=== PATIENT | female | born 1955 | race Hispanic/Latino ===

== ENCOUNTER → 2017-09-02 | Outpatient (CLI) | payer BC ==
[~2017-09-02] MED LIST: ENALAPRIL MALEAT5 MG PO; ESTRADIOL1 MG PO; LOSARTAN POTASS25 MG PO; Z.0.GLIPIZIDE10 MG PO; Z.0.METFORMIN HCL850 PO; Z.0.PRAVASTATIN SOD4 PO; Z.0.PREMARIN0.45 MG PO
--- NOTE | 2017-09-02 11:10 | Diagnostic Imaging Report ---
EXAM: DXA BONE DENSITY INDICATIONS: Postmenopausal screening COMPARISON: None. FINDINGS: Left femoral neck bone mineral density (BMD) (g/cm2):0.815 Femur T-score (standard deviation relative to young adult mean BMD): -0.5 Femur Z-score (standard deviation relative to age-matched control group):0.8 Lumbar bone mineral density (BMD) (g/cm2):0.915 Lumbar T-score (standard deviation relative to young adult mean BMD): -1.2 Lumbar Z-score (standard deviation relative to age-matched control group):0.2 CONCLUSION: WHO bone mineral classification: Low bone mass (osteopenia). RECOMMENDATIONS: Normal \T\ Osteopenia:Calcium supplementation, daily multiple vitamins, and adequate exercise as preventive measures against osteoporosis. Osteoporosis \T\ Severe Osteoporosis: In addition to the above, pharmacologic therapy. Dictated by: Abran Arreola M.D. on 09/02/2017 at 11:09 Electronically approved by: Abran Arreola M.D. on 09/02/2017 at 11:09
== END ==
LOC: MAMMO 09:38
PROVIDERS: ATTEND Family Medicine
DX: Z12.31 Encounter for screening mammogram for malignant neoplasm of breast (principal); Z78.0 Asymptomatic menopausal state
CPT/HCPCS: 77080

== ENCOUNTER → 2018-03-24 | Outpatient (CLI) | payer BC ==
--- NOTE | 2018-03-24 13:03 | Diagnostic Imaging Report ---
EXAMINATION: Thyroid ultrasound. CLINICAL HISTORY: Thyroid enlargement COMPARISON: None. . DISCUSSION: Transverse and longitudinal images of the thyroid were obtained utilizing grayscale and color Doppler modalities. The right thyroid lobe measures 3.8 x 1.2 x 1.5 cm and shows heterogeneous echogenicity. Interpolar 1 x 0.6 x 0.9 cm solid (2), hypoechoic (2), wider than tall (0), sharply marginated nodule (0) with no internal echogenic foci (0). The left thyroid lobe measures 3.9 x 1.4 x 1.5 cm and shows heterogeneous echogenicity. No nodules are seen. The thyroid isthmus measures 0.2 cm and shows normal echogenicity. No nodules are seen. There is no gross cervical adenopathy. IMPRESSION: 1 cm right thyroid nodule, TI RADS 4, recommend follow-up thyroid ultrasound in one year to assess for stability. Signed by: Dr. Juan Crowe M.D. on 03/24/2018 1:00 PM
== END ==
LOC: US 11:50
PROVIDERS: ATTEND Family Medicine
DX: E04.9 Nontoxic goiter, unspecified (principal)
CPT/HCPCS: 76536

== ENCOUNTER → 2018-10-12 | Outpatient (CLI) | payer BC ==
--- NOTE | 2018-10-12 12:40 | Diagnostic Imaging Report ---
Lumbar Spine Radiographs: 5 views including obliques HISTORY: Lumbosacral pain COMPARISON: None available. DISCUSSION: The osseous structures are partially obscured by stool and bowel gas. Five non-rib bearing lumbar vertebral bodies. Minimal right convex curvature. No displaced fracture or compression deformity is identified. Disc Spaces: Multilevel degenerative changes, most notably moderate at T12-L1 and L1-2. Facets: Multilevel hypertrophic degenerative changes, most notably moderate at L3-4 and L4-5, severe at L5-S1. IMPRESSION: 1. No acute radiographic abnormality. 2. Multilevel degenerative changes, most notably hypertrophic facet arthrosis at L5-S1, which results in mild bilateral neuroforaminal osseous encroachment. Signed by: Dr. Catarino Zimmer D.O., M.M.M. on 10/12/2018 12:37 PM
== END ==
LOC: RAD 10:11
PROVIDERS: ATTEND Family Medicine
DX: M54.5 Low back pain (principal)
CPT/HCPCS: 72110

== ENCOUNTER → 2018-10-31 | Outpatient (CLI) | payer BC | LOC: MAMMO 08:47 | PROVIDERS: ATTEND Family Medicine | DX: Z12.31 Encounter for screening mammogram for malignant neoplasm of breast (principal) | CPT/HCPCS: 77067 ==

== ENCOUNTER → 2018-11-13 | Outpatient (CLI) | payer BC ==
--- NOTE | 2018-11-13 18:11 | Diagnostic Imaging Report ---
Exam: Left hip series History: Fall Comparison: None available Findings: No obvious displaced hip fracture. Faint sclerotic line in the subcapital region could represent minimal impaction. CT scan of the hip is recommended if clinical suspicion for a fracture is high. Impression: Faint subcapital sclerotic line could represent a nondisplaced fracture. Signed by: Dr. Sai Lebron DO on 11/13/2018 6:08 PM
== END ==
LOC: RAD 15:08
PROVIDERS: ATTEND Family Medicine
DX: M25.552 Pain in left hip (principal); W18.30XA Fall on same level, unspecified, initial encounter

== ENCOUNTER → 2018-11-17 | Outpatient (CLI) | payer BC ==
--- NOTE | 2018-11-19 08:06 | Diagnostic Imaging Report ---
TECHNIQUE: Magnetic resonance imaging of the LEFT HIP was performed WITHOUT injected contrast. HISTORY: OCCULT FRACTURE LEFT HIP, fall COMPARISON: Left hip radiographs November 13, 2018 FINDINGS: Bone: A 6 mm hypointensity within the left ischium, compatible with a small bone island. Otherwise, the bone marrow signal is diffusely heterogeneous, compatible with red marrow conversion, no specific evidence of a focal bone marrow replacing abnormality. No osteonecrosis or acute fracture. Femoroacetabular Joint: Acetabular labrum: Complex tearing and attenuation of the superior and anterosuperior labrum along with a focal high-grade, nondisplaced detachment of the anterior labrum (series 7 image 11). Articular Cartilage: Diffuse intermediate to high-grade erosion. Incidentally, there is symmetric bilateral axial narrowing. Muscle and tendons: Gluteus minimus tendinopathy with low-grade partial tearing of the distal fibers near the greater trochanteric insertion. Mild adjacent edema. Soft tissues: Otherwise, unremarkable. IMPRESSION: 1. Bilateral moderate symmetric hip arthropathy, consider underlying inflammatory arthropathy. 2. Superimposed degenerative changes of the left hip, including degenerative tearing of the labrum. 3. 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 4. No acute fracture. Signed by: Pastor Dennis.O., M.M.M. on 11/19/2018 8:02 AM
== END ==
LOC: MRI 16:56
PROVIDERS: ATTEND Specialist
DX: M25.552 Pain in left hip (principal); W19.XXXA Unspecified fall, initial encounter

== ENCOUNTER 2019-01-18 18:27 | Emergency (ER) | payer BC ==
[~2019-01-18] VITALS: Ht 152.4 cm; Wt 80.7 kg
--- OUTSIDE RECORDS SUMMARY | 2019-01-18 18:33 | XMS REPORT ---
Author Author Rylee Garcia [facility] eClinicalWorks Address Unknown Phone Unavailable Care Team Providers Care Heavy Equipment Operator/Paver Name Role Phone Rylee Garcia Unavailable Allergies, Adverse Reactions, Alerts Substance Reaction Event Type N.K.D.A. 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 Problem Polyarthritis M13.0 Active Medications Medication Code System Code Instructions Start Date End Date Status Dosage Ibuprofen [facility] [address]-22 800 MG Orally Three times a day Feb 24, 2017 Active 1 tablet with food or milk as needed Famotidine [facility] [address]-77 20 MG Orally Three times a day Feb 24, 2017 Active 1 tablet Diclofenac Sodium [facility] [address]-33 1 % Transdermal Active as directed Duexis [facility] 41578451672 800-26.6 MG PRN Feb 24, 2017 Inactive 1 tablet Losartan Potassium [facility] [address]-94 25 MG Orally Once a day Active 1 tablet GlipiZIDE [facility] [address]-26 10 MG Orally Once a day Active 1 tablet Plaquenil [facility] [address]-61 200 MG Orally Twice a day May 25, 2017 Active 1 tablet with food or milk Lyrica [facility] [address]-47 75 MG Orally Twice a day Feb 24, 2017 Active 1 capsule MetFORMIN HCl ER [facility] [address]-73 750 MG Orally Once a day Active 1 tablet with evening meal Pravastatin Sodium [facility] [address]-29 80 MG Orally Once a day Active 1 tablet Januvia [facility] [address]-56 100 MG Orally Once a day Active 1 tablet Vital Signs Date/Time: Feb 24, 2017 BMI 34.64 Index Weight 177.4 lbs Height 60 in Temperature 98.1 F Cardiac Monitoring Heart Rate 80 /min Blood Pressure Diastolic 60 mm Hg Blood Pressure Systolic 100 mm Hg Results No Known Results Summary Purpose eClinicalWorks Submission
--- OUTSIDE RECORDS SUMMARY | 2019-01-18 18:33 | XMS REPORT ---
Author Author Rylee Garcia Organization eClinicalWorks Address Unknown Phone Unavailable Care Team Providers Care Publication Editor Name Role Phone Rylee Garcia Unavailable Allergies, Adverse Reactions, Alerts Substance Reaction Event Type N.K.D.A. 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 [address]-78 10 MG Orally Once a day Active 1 tablet [address] [facility] [address]-57 800-26.6 MG Orally Three times a day December 08, 2016 January 07, 2017 Active 1 tablet Hydroxychloroquine Sulfate [facility] [address]-93 200 MG Orally bid October 07, 2016 February 04, 2017 Active 1 tablet with food or milk Butalbital-Acetaminophen [facility] [address]-65 50-325 MG Orally PRN Active 1 tablet as needed Losartan Potassium [facility] [address]-14 25 MG Orally Once a day Active 1 tablet [address] [facility] [address]-70 100 MG Orally Once a day Active 1 tablet MetFORMIN HCl ER [facility] [address]-96 750 MG Orally Once a day Active 1 tablet with evening meal Pravastatin Sodium [facility] [address]-26 80 MG Orally Once a day Active 1 tablet Diclofenac Sodium [facility] [address]-26 1 % Transdermal Active as directed Vimovo [facility] [address]-50 500-20 MG Orally Twice a day December 08, 2016 Inactive 1 tablet before meals Vital Signs Date/Time: December 08, 2016 BMI 35.01 Index Weight 179.3 lbs Height 60 in Temperature 98.0 F Cardiac Monitoring Heart Rate 80 /min Blood Pressure Diastolic 70 mm Hg Blood Pressure Systolic 112 mm Hg Results No Known Results Summary Purpose eClinicalWorks Submission
--- OUTSIDE RECORDS SUMMARY | 2019-01-18 18:33 | XMS REPORT ---
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
--- OUTSIDE RECORDS SUMMARY | 2019-01-18 18:33 | XMS REPORT ---
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
--- OUTSIDE RECORDS SUMMARY | 2019-01-18 18:33 | XMS REPORT ---
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
--- OUTSIDE RECORDS SUMMARY | 2019-01-18 18:33 | XMS REPORT ---
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
--- OUTSIDE RECORDS SUMMARY | 2019-01-18 18:33 | XMS REPORT ---
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
--- OUTSIDE RECORDS SUMMARY | 2019-01-18 18:33 | XMS REPORT ---
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
--- OUTSIDE RECORDS SUMMARY | 2019-01-18 18:33 | XMS REPORT ---
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
--- OUTSIDE RECORDS SUMMARY | 2019-01-18 18:33 | XMS REPORT ---
Author Author Leo Hsieh Organization eClinicalWorks Address Unknown Phone Unavailable Care Team Providers Care Labor Conciliator Name Role Phone Leo Hsieh CP Unavailable Allergies, Adverse Reactions, Alerts Substance Reaction Event Type N.K.D.A. 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 Problem Fibromyalgia M79.7 Active Problem Polyarthritis M13.0 Active Medications Medication Code System Code Instructions Start Date End Date Status Dosage Januvia ND 73989983088 100 MG Orally Once a day Active 1 tablet GlipiZIDE ND 43858996907 10 MG Orally Once a day Active 1 tablet Tylenol/Codeine #3 [facility] 11307198883 300-30 MG Orally bid Active 1 tablet as needed MetFORMIN HCl ER ND 71337733388 750 MG Orally Once a day Active 1 tablet with evening meal Omeprazole ND 55832439421 40 MG Orally Once a day Active 1 capsule Lyrica ND 36301146004 50 MG Orally as needed Active 1 capsules Losartan Potassium ND 66261834233 25 MG Orally Once a day Active 1 tablet Leflunomide ND 52563479178 20 MG Orally Once a day Active tome monse - 1 tableta(s) por la boca monse vez al tyler. Pravastatin Sodium ND 20971556209 80 MG Orally Once a day Active 1 tablet Vital Signs Date/Time: Aug 24, 2018 BMI 35 Index Weight 177 lbs Height 60 in Temperature 98.4 F Cardiac Monitoring Heart Rate 96 /min Blood Pressure Diastolic 82 mm Hg Blood Pressure Systolic 110 mm Hg Results No Known Results Summary Purpose eClinicalWorks Submission
--- OUTSIDE RECORDS SUMMARY | 2019-01-18 18:33 | XMS REPORT | Continuity of Care Document ---
Author Author [employer] Organization [employer] Address Unknown Phone Unavailable Care Team Providers Care Industrial Green Systems Designer Name Role Phone [employer] Unavailable Unavailable Problems Problem Status Onset Date Classification Date Reported Comments Source Primary osteoarthritis involving multiple joints Active Problem 12/22/2018 Gregory Hsieh Polyarthritis Active Diagnosis 12/22/2018 Gregory Jori Fibromyalgia Active Problem 12/22/2018 Gregory Jori Myalgia Active Diagnosis 10/14/2018 Gregory Hsieh Encounter for drug therapy Active Problem 12/22/2018 Gregory Hsieh Osteopenia of spine Active Problem 12/22/2018 Gregory Hsieh Neck pain Active Problem 12/22/2018 Gregory Hsieh Sciatica of right side Active Problem 12/22/2018 Gregory Hsieh Medications Medication Details Route Status Patient Instructions Ordering Provider Order Date Source Acetaminophen-Codeine #3 1 tablet as needed Orally Active 300- 30 MG Orally q hs Hsieh 09/01/2017 Gregory Hsieh PredniSONE 1 tablet Orally Active 5 MG Orally q am with food Hsieh 09/01/2017 Gregory Hsieh Celecoxib 1 capsule with food Orally Active 200 MG Orally Twice a day Hsieh 07/21/2017 Gregory Hsieh Plaquenil 1 tablet with food or milk Orally Active 200 MG Orally Twice a day Sadie 07/21/2017 Gregory Hsieh Leflunomide 1 tablet Orally Active 10 MG Orally Once a day Hsieh 07/21/2017 Gregory Hsieh Plaquenil 1 tablet with food or milk Orally Active 200 MG Orally Twice a day Garcia 05/25/2017 Gregory Hsieh Famotidine 1 tablet Orally Active 20 MG Orally Three times a day Garcia 02/24/2017 Gregory Hsieh Plaquenil 1 tablet with food or milk Orally Active 200 MG Orally Twice a day Hsieh 02/24/2017 Gregory Hsieh Ibuprofen 1 tablet with food or milk as needed Orally Active 800 MG Orally Three times a day Garcia 02/24/2017 Gregory Hsieh Duexis 1 tablet NA Active 800-26.6 MG PRN Garcia 02/24/2017 Gregory Hsieh Lyrica 1 capsule Orally Active 75 MG Orally Twice a day Barnes 02/24/2017 Gregory Hsieh Duexis 1 tablet Orally Active 800-26.6 MG Orally Three times a day Garcia 12/08/2016 Gregory Hsieh Vimovo 1 tablet before meals Orally Active 500-20 MG Orally Twice a day Barnes 12/08/2016 Gregory Hsieh Hydroxychloroquine Sulfate 1 tablet with food or milk Orally Active 200 MG Orally bid Barnes 10/07/2016 Gregory Hsieh GlipiZIDE 1 tablet Orally Active 10 MG Orally Once a day [place] Gregory Hsieh Butalbital-Acetaminophen 1 tablet as needed Orally Active 50- 325 MG Orally PRN [place] Gregory Hsieh Losartan Potassium 1 tablet Orally Active 25 MG Orally Once a day [place] Gregory Hsieh Januvia 1 tablet Orally Active 100 MG Orally Once a day [place] Gregory Hsihe MetFORMIN HCl ER 1 tablet with evening meal Orally Active 750 MG Orally Once a day [place] Gregory Hsieh Pravastatin Sodium 1 tablet Orally Active 80 MG Orally Once a day [place] Gregory Hsieh Diclofenac Sodium as directed Transdermal Active 1 % Transdermal [place] Gregory Hsieh Losartan Potassium 1 tablet Orally Active 25 MG Orally Once a day [place] Gregory Careyer Pravastatin Sodium 1 tablet Orally Active 80 MG Orally Once a day [place] Gregory Hsieh GlipiZIDE 1 tablet Orally Active 10 MG Orally Once a day [place] Gregory Hsieh Januvia 1 tablet Orally Active 100 MG Orally Once a day [place] Gregory Careyer Leflunomide TOME MONSE (1) TABLETA(S) POR LA BOCA MONSE VEZ AL ERIN. NA Active 10 MG [place] Gregory Careyer Headache Relief 2 tablets as needed Orally Active 250-250-65 MG Orally every 6 hrs [place] Gregory Careyer MetFORMIN HCl ER 1 tablet with evening meal Orally Active 750 MG Orally Once a day [place] Gregory Careyer Januvia 1 tablet Orally Active 100 MG Orally Once a day [facility] Diclofenac Sodium as directed Transdermal Active 1 % Transdermal [place] Gregory Hsieh Lyrica 1 capsule Orally Active 75 MG Orally Twice a day [place] Gregory Hsieh Ibuprofen 1 tablet with food or milk as needed Orally Active 800 MG Orally Three times a day [place] Gregory Hsieh Famotidine 1 tablet Orally Active 20 MG Orally Three times a day [place] Gregory Hsieh Tylenol/Codeine #3 1 tablet as needed Orally Active 300-30 MG Orally bid [place] Gregory Hsieh Omeprazole 1 capsule Orally Active 40 MG Orally Once a day [place] Gregory Hsieh Lyrica 1 capsules Orally Active 50 MG Orally as needed [place] Gregory Hsieh Leflunomide tome monse -1 tableta(s) por la boca monse vez al erin. Orally Active 20 MG Orally Once a day [place] Gregory Hsieh Lansoprazole 1 capsule Orally Active 30 MG Orally Once a day [place] Gregory Hsieh Lyrica 2 capsules Orally Active 25 MG Orally Twice a day [place] Gregory Hsieh Allergies, Adverse Reactions, Alerts Substance Category Reaction Severity Reaction type Status Date Reported Comments Source N.K.D.A. Adverse Reaction Info Not Available Adverse Reaction Active 08/24/2018 Gregory Hsieh Immunizations No Data Provided for This Section Results No Data Provided for This Section Pathology Reports No Data Provided for This Section Diagnostic Reports No Data Provided for This Section Consultation Notes No Data Provided for This Section Discharge Summaries No Data Provided for This Section History and Physicals No Data Provided for This Section Vital Signs Vital Sign Value Date Comments Source Weight 177 08/24/2018 Gregory Hsieh Height 60 08/24/2018 Gregory Hsieh Temperature Oral (F) 98.4 F 08/24/2018 Gregory Hsieh Heart Rate 96 08/24/2018 Gregory Hsieh Diastolic (mm Hg) 82 08/24/2018 Gregory Hsieh Systolic (mm Hg) 110 08/24/2018 Gregory Hsieh Weight 178.1 05/23/2018 Gregory Hsieh Height 60 05/23/2018 Gregory Hsieh Temperature Oral (F) 98.5 F 05/23/2018 Gregory Hsieh Heart Rate 80 05/23/2018 Gregory Hsieh Diastolic (mm Hg) 72 05/23/2018 Gregory Hsieh Systolic (mm Hg) 124 05/23/2018 Gregory Hsieh Weight 175.2 11/22/2017 Gregory Hsieh Height 60 11/22/2017 Gregory Hsieh Temperature Oral (F) 98.1 F 11/22/2017 Gregory Hsieh Heart Rate 80 11/22/2017 Gregory Hsieh Diastolic (mm Hg) 72 11/22/2017 Gregory Hsieh Systolic (mm Hg) 110 11/22/2017 Gregory Hsieh Weight 179 09/01/2017 Gregory Hsieh Height 60 09/01/2017 Gregory Hsieh Temperature Oral (F) 98.8 F 09/01/2017 Gregory Hsieh Heart Rate 99 09/01/2017 Gregory Hsieh Diastolic (mm Hg) 70 09/01/2017 Gregory Hsieh Systolic (mm Hg) 110 09/01/2017 Gregory Hsieh Weight 180 07/21/2017 Gregory Hsieh Height 60 07/21/2017 Gregory Hsieh Temperature Oral (F) 98.4 F 07/21/2017 Gregory Hsieh Heart Rate 80 07/21/2017 Gregoyr Hsieh Diastolic (mm Hg) 70 07/21/2017 Gregory Hsieh Systolic (mm Hg) 110 07/21/2017 Gregory Hsieh Weight 177.4 02/24/2017 Gregory Hsieh Height 60 02/24/2017 Gregory Hsieh Temperature Oral (F) 98.1 F 02/24/2017 Gregory Hsieh Heart Rate 80 02/24/2017 Gregory Hsieh Diastolic (mm Hg) 60 02/24/2017 Gregory Hsieh Systolic (mm Hg) 100 02/24/2017 Gregory Hsieh Weight 179.3 12/08/2016 Gregory Hsieh Height 60 12/08/2016 Gregory Hsieh Temperature Oral (F) 98.0 F 12/08/2016 Gregory Hsieh Heart Rate 80 12/08/2016 Gregory Hsieh Diastolic (mm Hg) 70 12/08/2016 Gregory Hsieh Systolic (mm Hg) 112 12/08/2016 Gregory Hsieh Encounters No Data Provided for This Section Procedures No Data Provided for This Section Assessment and Plan No Data Provided for This Section Plan of Care No Data Provided for This Section Social History No Data Provided for This Section Family History No Data Provided for This Section Advance Directives No Data Provided for This Section Functional Status No Data Provided for This Section
--- OUTSIDE RECORDS SUMMARY | 2019-01-18 18:34 | XMS REPORT ---
Author Author Leo Hsieh [facility] eClinicalWorks Address Unknown Phone Unavailable Care Team Providers Care Marine Cargo Specialist Name Role Phone Leo Hsieh Unavailable Allergies, Adverse Reactions, Alerts Substance Reaction Event Type N.K.D.A. Info Not Available Non Drug Allergy Problems Problem Type Condition Code Onset Dates Condition Status Assessment Neck pain M54.2 Active Assessment Polyarthritis M13.0 Active Assessment Osteopenia of spine M85.88 Active Assessment Encounter for drug therapy Z79.899 Active Assessment Fibromyalgia M79.7 Active Assessment Primary osteoarthritis involving multiple joints M15.0 Active Problem Osteopenia of spine M85.88 Active Problem Encounter for drug therapy Z79.899 Active Problem Neck pain M54.2 Active Problem Primary osteoarthritis involving multiple joints M15.0 Active Problem Fibromyalgia M79.7 Active Problem Polyarthritis M13.0 Active Medications Medication Code System Code Instructions Start Date End Date Status Dosage Januvia [facility] 85878552365 100 MG Orally Once a day Active 1 tablet Omeprazole ND 67358082623 40 MG Orally Once a day Active 1 capsule GlipiZIDE ND 24334934996 10 MG Orally Once a day Active 1 tablet Losartan Potassium ND 44566568163 25 MG Orally Once a day Active 1 tablet Lansoprazole ND 71211679839 30 MG Orally Once a day Active 1 capsule Tylenol/Codeine #3 [facility] 77337415712 300-30 MG Orally every 6 hrs Active 1 tablet as needed MetFORMIN HCl ER ND 28842081554 750 MG Orally Once a day Active 1 tablet with evening meal Leflunomide ND 87517736229 20 MG Orally Once a day Active tome monse - 1 tableta(s) por la boca monse vez al tyler. Lyrica ND 09860525476 25 MG Orally Twice a day Active 2 capsules Pravastatin Sodium ND 22609113687 80 MG Orally Once a day Active 1 tablet Vital Signs Date/Time: May 23, 2018 BMI 34.78 Index Weight 178.1 lbs Height 60 in Temperature 98.5 F Cardiac Monitoring Heart Rate 80 /min Blood Pressure Diastolic 72 mm Hg Blood Pressure Systolic 124 mm Hg Results No Known Results Summary Purpose eClinicalWorks Submission
--- OUTSIDE RECORDS SUMMARY | 2019-01-18 18:34 | XMS REPORT ---
Author Author Joan Noel [facility] eClinicalWorks Address Unknown Phone Unavailable Care Team Providers Care Emergency Nurse Name Role Phone Joan Noel Unavailable Allergies, Adverse Reactions, Alerts Substance Reaction Event Type N.K.D.A. Info Not Available Non Drug Allergy Problems Problem Type Condition Code Onset Dates Condition Status Problem Polyarthritis M13.0 Active Problem Primary osteoarthritis involving multiple joints M15.0 Active Problem Fibromyalgia M79.7 Active Assessment Polyarthritis M13.0 Active Assessment Fibromyalgia M79.7 Active Medications Medication Code System Code Instructions Start Date End Date Status Dosage Januvia [facility] 37878349930 100 MG Orally Once a day Active 1 tablet Pravastatin Sodium ND 09507138005 80 MG Orally Once a day Active 1 tablet Diclofenac Sodium [facility] 09933005784 1 % Transdermal Active as directed MetFORMIN HCl ER ND 81569205214 750 MG Orally Once a day Active 1 tablet with evening meal Celecoxib ND 49146061728 200 MG Orally Twice a day Jul 21, 2017 November 18, 2017 Active 1 capsule with food Losartan Potassium ND 06781598228 25 MG Orally Once a day Active 1 tablet GlipiZIDE ND 68428384053 10 MG Orally Once a day Active 1 tablet Lyrica ND 64077907458 75 MG Orally Twice a day Active 1 capsule Ibuprofen ND 14074445331 800 MG Orally Three times a day Active 1 tablet with food or milk as needed Plaquenil ND 69990564711 200 MG Orally Twice a day Jul 21, 2017 Inactive 1 tablet with food or milk Leflunomide ND 83066356139 10 MG Orally Once a day Jul 21, 2017 November 18, 2017 Active 1 tablet Famotidine ND 69353849432 20 MG Orally Three times a day Active 1 tablet Vital Signs Date/Time: Jul 21, 2017 BMI 35.15 Index Weight 180 lbs Height 60 in Temperature 98.4 F Cardiac Monitoring Heart Rate 80 /min Blood Pressure Diastolic 70 mm Hg Blood Pressure Systolic 110 mm Hg Results No Known Results Summary Purpose eClinicalWorks Submission
--- OUTSIDE RECORDS SUMMARY | 2019-01-18 18:34 | XMS REPORT ---
Author Author [facility] Address Unknown Phone Unavailable Care Team Providers Care Hide Mill Man Name Role Phone TIFFANY WELLS Unavailable Unavailable ISRRAEL BELL Unavailable Unavailable Problems This patient has no known problems. Allergies, Adverse Reactions, Alerts This patient has no known allergies or adverse reactions. Medications This patient has no known medications. Results Test Description Test Time Test Comments Text Results Atomic Results Result Comments MRI HIP LEFT WO 2018-11-19 07:45:00 [place] [address] Patient Name: MARLA GOODWIN MR #: [id number] : 1955 Age/Sex: 63/F Req #: [id number] Adm Physician: Ordered by: TIFFANY WELLS MD Report #: [id number] Location: MRI Room/Bed: Procedure: [id number] MRI/MRI HIP LEFT WO Exam Date: Exam Time: REPORT STATUS: Signed TECHNIQUE: Magnetic resonance imaging of the LEFT HIP was performed WITHOUT injected contrast. HISTORY: OCCULT FRACTURE LEFT HIP, fall COMPARISON: Left hip radiographs November 13, 2018 FINDINGS: Bone: A 6 mm hypointensity within the left ischium, compatible with a small bone island. Otherwise, the bone marrow signal is diffusely heterogeneous, compatible with red marrow conversion, no specific evidence of a focal bone marrow replacing abnormality. No osteonecrosis or acute fracture. Femoroacetabular Joint: Acetabular labrum: Complex tearing and attenuation of the superior and anterosuperior labrum along with a focal high-grade, nondisplaced detachment of the anterior labrum (series 7 image 11). Articular Cartilage: Diffuse intermediate to high-grade erosion. Incidentally, there is symmetric bilateral axial narrowing. Muscle and tendons: Gluteus minimus tendinopathy with low-grade partial tearing of the distal fibers near the greater trochanteric insertion. Mild adjacent edema. Soft tissues: Otherwise, unremarkable. IMPRESSION: 1. Bilateral moderate symmetric hip arthropathy, consider underlying inflammatory arthropathy. 2. Superimposed degenerative changes of the left hip, including degenerative tearing of the labrum. 3. 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 4. No acute fracture. Signed by: Dr. Catarino Zimmer D.O., M.M.M. on 11/19/2018 8:02 AM Dictated By: CATARINO ZIMMER DO 1 Transcribed By: RODOLFO on 11/19/18801 COPY TO: TIFFANY WELLS MD HIP LEFT 2-3 VW (+/- PELVIS) 2018-11-13 18:06:00 [place] [address] Patient Name: MARLA GOODWIN MR #: [id number] : 1955 Age/Sex: 63/F Req #: [id number] Adm Physician: Ordered by: ARABELLA FERRO, ISRRAEL Infante MD Report #: [id number] Location: [facility] Room/Bed: Procedure: [id number] DX/HIP LEFT 2-3 VW (+/- PELVIS) Exam Date: Exam Time: REPORT STATUS: Signed Exam: Left hip series History: Fall Comparison: None available Findings: No obvious displaced hip fracture. Faint sclerotic line in the subcapital region could represent minimal impaction. CT scan of the hip is recommended if clinical suspicion for a fracture is high. Impression: Faint subcapital sclerotic line could represent a nondisplaced fracture. Signed by: Dr. Sai Lebron DO on 11/13/2018 6:08 PM Dict ated By: SAI LEBRON DO 07 Transcribed By: RODOLFO on 11/13/181807 COPY TO: ISRRAEL BELL MAMMOGRAPHY DIGITAL SCR BILAT 2018-10-31 09:47:00 [place] [address] Patient Name: MARLA GOODWIN MR #: [id number] : 1955 Age/Sex: 63/F Req #: [id number] Adm Physician: Ordered by: ARABELLA FERRO, ISRRAEL Infante MD Report #: [id number] Location: MAMMO Room/Bed: Procedure: [id number] MG/MAMMOGRAPHY DIGITAL SCR BILAT Exam Date: 10/31/18 Exam Time: 917 REPORT STATUS: Signed #[id number] - MGSCRBIL #BILATERAL DIGITAL SCREENING MAMMOGRAM WITH CAD: 10/31/2018 CLINICAL: Routine screening. Comparison is made to exams dated: 09/02/2017 mammogram and 04/15/2016 mammogram - [facility]. Current study contains 4 films. The tissue of both breasts is predominantly fatty. Current study was also evaluated with a Computer Aided Detection (CAD) system. There are benign ca lcifications in both breasts. No significant masses, calcifications, or other findings are seen in either breast. There has been no significant interval change. IMPRESSION: BENIGN There is no mammographic evidence of malignancy. A 1 year screening mammogram is recommended. The patient will be notified by letter of the results. Sai mendosa/eugene:11/13/2018 08:07:42 Accreditation Coordinator: Sabrina STEPHENS)(Jad), [facility] letter sent: Compared to Prior B9 Mammogram BI-RADS: 2 Benign Dictated By: SAI LEBRON DO 08 Transcribed By: EUGENE on 11/13/18 0807 COPY TO: ISRRAEL BELL LUMBAR, COMPLETE MIN 4VW 2018-10-12 12:18:00 [place] [address] Patient Name: MARLA GOODWIN MR #: [id number] : 1955 Age/Sex: 63/F Req #: [id number] Adm Physician: Ordered by: ISRRAEL BELL MD, MD Report #: [id number] Location: [facility] Room/Bed: Procedure: [id number] DX/SP LUMBAR, COMPLETE MIN 4VW Exam Date: 10/12/18 Exam Time: 1020 REPORT STATUS: Signed Lumbar Spine Radiographs: 5 views including obliques HISTORY: Lumbosacral pain COMPARISON: None available. DISCUSSION: The osseous structures are partially obscured by stool and bowel gas. Five non-rib bearing lumbar vertebral bodies. Minimal right convex curvature. No displaced fracture or compression deformity is identified. Disc Spaces: Multilevel degenerative changes, most notably moderate at T12-L1 and L1-2. Facets: Multilevel hypertrophic degenerative changes, most notably moderate at L3-4 and L4-5, severe at L5-S1. IMPRESSION: 1. No acute radiographic abnormality. 2. Multilevel degenerative changes, most notably hypertrophic facet arthrosis at L5-S1, which results in mild bilateral neuroforaminal osseous encroachment. Signed by: Dr. Catarino Zimmer D.O., M.M.M. on 10/12/2018 12:37 PM Dictated By: CATARINO ZIMMER DO 1237 Transcribed By: RODOLFO on 10/12/18 1237 COPY TO: ISRRAEL BELL THYROID 2018-03-24 12:57:00 [place] [address] Patient Name: MARLA GOODWIN MR #: [id number] : 1955 Age/Sex: 62/F Req #: [id number] Adm Physician: Ordered by: ARABELLA FERRO, ISRRAEL Infante MD Report #: [id number] Location: US Room/Bed: Procedure: [id number] US/US THYROID Exam Date: 03/24/18 Exam Time: 1218 REPORT STATUS: Signed EXAMINATION: Thyroid ultrasound. CLINICAL HISTORY: Thyroid enlargement COMPARISON: None. . DISCUSSION: Transverse and longitudinal images of the thyroid were obtained utilizing grayscale and color Doppler modalities. The right thyroid lobe measures 3.8 x 1.2 x 1.5 cm and shows heterogeneous echogenicity. Interpolar 1 x 0.6 x 0.9 cm solid (2), hypoechoic (2), wider than tall (0), sharply marginated nodule (0) with no internal echogenic foci (0). The left thyroid lobe measures 3.9 x 1.4 x 1.5 cm and shows heterogeneous echogenicity. No nodules are seen. The thyroid isthmus measures 0.2 cm and shows normal echogenicity. No nodules are seen. There is no gross cervical adenopathy. IMPRESSION: 1 cm right thyroid nodule, TI RADS 4, recommend follow-up thyroid ultrasound in one year to assess for stability. Signed by: Dr. Kin Moscoso M.D. on 03/24/2018 1:00 PM Dictated By: KIN MOSCOSO MD 1300 Transcribed By: RODOLFO on 03/24/18 1300 COPY TO: ISRRAEL BELL BONE DXA DUAL ENERGY [place] [address] Patient Name: MARLA GOODWIN MR #: [id number] : 1955 Age/Sex: 62/F Req #: [id number] Adm Physician: Ordered by: ARABELLA FERRO, ISRRAEL Infante MD Report #: [id number] Location: [facility] Room/Bed: Procedure: [id number] DX/BONE DXA DUAL ENERGY Exam Date: Exam Time: REPORT STATUS: Signed EXAM: DXA BONE DENSITY INDICATIONS: Postmenopausal screening COMPARISON: None. FINDINGS: Left femoral neck bone mineral density (BMD) (g/cm2): 0.815 Femur T-score (standard deviation relative to young adult mean BMD): -0.5 Femur Z-score (standard deviation relative to age-matched control group): 0.8 Lumbar bone mineral density (BMD) (g/cm2): 0.915 Lumbar T-score (standard deviation relative to young adult mean BMD): -1.2 Lumbar Z-score (standard deviation relative to age-matched control group): 0.2 CONCLUSION: WHO bone mineral classification: Low bone mass (osteopenia). RECOMMENDATIONS: Normal T Osteopenia: Calcium supplementation, daily multiple vitamins, and adequate exercise as preventive measures against osteoporosis. Osteoporosis T Severe Osteoporosis: In addition to the above, pharmacologic therapy. Dictated by: Tenzin Arreola M.D. on 09/02/2017 at 11:09 Electronically approved by: Tenzin Arreola M.D. on 09/02/2017 at 11:09 Dictated By: TENZIN ARREOLA MD 110 Transcribed By: GROVER on 09/02/17 110 COPY TO: ISRRAEL BELL MAMMOGRAM DIGITAL SCR BI [place] [address] Patient Name: MARLA GOODWIN MR #: [id number] : 1955 Age/Sex: 62/F Req #: [id number] Adm Physician: Ordered by: ISRRAEL BELL MD, MD Report #: [id number] [facility] Room/Bed: Procedure: [id number] MG/MAMMOGRAM DIGITAL SCR BI Exam Date: 09/02/17 Exam Time: 0946 REPORT STATUS: Signed #[id number] - MGSCRNBI #BILATERAL DIGITAL SCREENING MAMMOGRAM WITH CAD: 09/02/2017 CLINICAL: Routine screening. Comparison is made to exams dated: 04/15/2016 mammogram, 03/27/2015 mammogram and 03/12/2014 mammogram - [facility]. Current study contains 4 films. The tissue of both breasts is predominantly fatty. Current study was also evaluated with a Computer Aided Detection (CAD) system. There are benign calcifications in both breasts. No significant masses, calcifications, or other findings are seen in either breast. There has been no significant interval change. IMPRESSION: BENIGN There is no mammographic evidence of malignancy. A 1 year screening mammogram is recommended. The patient will be notified by letter of the results. Sai mendosa/eugene:09/14/2017 09:11:16 Accreditation Coordinator: Sabrina HILLS(Natalee)(M), [facility] letter sent: Compared to Prior B9 Mammogram BI-RADS: 2 Benign Dictated By: SAI LEBRON DO 09 Transcribed By: EUGENE on 09/14/17 09 COPY TO: ISRRAEL BELL
--- OUTSIDE RECORDS SUMMARY | 2019-01-18 18:34 | XMS REPORT ---
Author Leo Acuna [facility] eClinicalWorks Address Unknown Phone Unavailable Care Team Providers Care Business Development Recruiter Name Role Phone Leo Hsieh Unavailable Allergies, Adverse Reactions, Alerts Substance Reaction Event Type N.K.D.A. Info Not Available Non Drug Allergy Problems Problem Type Condition Code Onset Dates Condition Status Problem Polyarthritis M13.0 Active Problem Primary osteoarthritis involving multiple joints M15.0 Active Problem Fibromyalgia M79.7 Active Assessment Fibromyalgia M79.7 Active Assessment Polyarthritis M13.0 Active Assessment Primary osteoarthritis involving multiple joints M15.0 Active Medications Medication Code System Code Instructions Start Date End Date Status Dosage GlipiZIDE ND 93710104236 10 MG Orally Once a day Active 1 tablet PredniSONE ND 28831297734 5 MG Orally q am with food Sep 01, 2017 November 30, 2017 Active 1 tablet Acetaminophen-Codeine #3 ND 26320817903 300-30 MG Orally q hs Sep 01, 2017 November 30, 2017 Active 1 tablet as needed Celecoxib ND 95949348953 200 MG Orally Twice a day Jul 21, 2017 Active 1 capsule with food Diclofenac Sodium [facility] 66296150480 1 % Transdermal Active as directed Famotidine ND 97708739340 20 MG Orally Three times a day Active 1 tablet Pravastatin Sodium ND 13149029792 80 MG Orally Once a day Active 1 tablet Losartan Potassium ND 61924210965 25 MG Orally Once a day Active 1 tablet Leflunomide ND 51998206828 10 MG Orally Once a day Jul 21, 2017 Active 1 tablet MetFORMIN HCl ER ND 10103322152 750 MG Orally Once a day Active 1 tablet with evening meal Ibuprofen ND 01770713487 800 MG Orally Three times a day Active 1 tablet with food or milk as needed Vital Signs Date/Time: Sep 01, 2017 BMI 34.95 Index Weight 179 lbs Height 60 in Temperature 98.8 F Cardiac Monitoring Heart Rate 99 /min Blood Pressure Diastolic 70 mm Hg Blood Pressure Systolic 110 mm Hg Results No Known Results Summary Purpose eClinicalWorks Submission
--- OUTSIDE RECORDS SUMMARY | 2019-01-18 18:34 | XMS REPORT ---
Author Author Leo Hsieh Organization eClinicalWorks Address Unknown Phone Unavailable Care Team Providers Care Scheduling Coordinator Name Role Phone Leo Hsieh CP Unavailable Allergies No Known Allergies Problems Problem Type Condition Code Onset Dates Condition Status Assessment Polyarthritis M13.0 Active Problem Osteopenia of spine M85.88 Active Problem Encounter for drug therapy Z79.899 Active Problem Sciatica of right side M54.31 Active Problem Polyarthritis M13.0 Active Problem Primary osteoarthritis involving multiple joints M15.0 Active Problem Neck pain M54.2 Active Problem Fibromyalgia M79.7 Active Medications Medication Code System Code Instructions Start Date End Date Status Dosage Leflunomide [facility] 24564723893 20 MG Orally Once a day Active tome monse - 1 tableta(s) por la boca monse vez al tyler. Results No Known Results Summary Purpose eClinicalWorks Submission
--- OUTSIDE RECORDS SUMMARY | 2019-01-18 18:34 | XMS REPORT ---
Author Author Leo Hsieh Organization eClinicalWorks Address Unknown Phone Unavailable Care Team Providers Care Cosmetology Professor Name Role Phone Leo Hsieh CP Unavailable Allergies No Known Allergies Problems Problem Type Condition Code Onset Dates Condition Status Problem Primary osteoarthritis involving multiple joints M15.0 Active Problem Polyarthritis M13.0 Active Medications No Known Medications Results No Known Results Summary Purpose eClinicalWorks Submission
--- OUTSIDE RECORDS SUMMARY | 2019-01-18 18:34 | XMS REPORT ---
Author Author Leo Hsieh Organization eClinicalWorks Address Unknown Phone Unavailable Care Team Providers Care String Top Sealer Name Role Phone Leo Hsieh CP Unavailable [...] Instructions Start Date End Date Status Dosage Losartan Potassium ND 22166190162 25 MG Orally Once a day Active 1 tablet Pravastatin Sodium ND 92383590285 80 MG Orally Once a day Active 1 tablet Acetaminophen-Codeine #3 ND 95647453923 300-30 MG Orally q hs Sep 01, 2017 Active 1 tablet as needed PredniSONE ND 48461426306 5 MG Orally q am with food Sep 01, 2017 Active 1 tablet GlipiZIDE ND 39491043349 10 MG Orally Once a day Active 1 tablet Januvia ND 76790502957 100 MG Orally Once a day Active 1 tablet Leflunomide [facility] 28584230808 10 MG Active TOME SADE (1) TABLETA(S) POR LA BOCA SADE VEZ AL ERIN. Headache Relief [facility] 21555484390 250-250-65 MG Orally every 6 hrs Active 2 tablets as needed MetFORMIN HCl ER ND 02486465944 750 MG Orally Once a day Active 1 tablet with evening meal Vital Signs Date/Time: November 22, 2017 BMI 34.21 Index Weight 175.2 lbs Height 60 in Temperature 98.1 F Cardiac Monitoring Heart Rate 80 /min Blood Pressure Diastolic 72 mm Hg Blood Pressure Systolic 110 mm Hg Results No Known Results Summary Purpose eClinicalWorks Submission
--- OUTSIDE RECORDS SUMMARY | 2019-01-18 18:34 | XMS REPORT ---
Author Leo Acuna [facility] eClinicalWorks Address Unknown Phone Unavailable Care Team Providers Care French Folder Name Role Phone Leo Hsieh CP Unavailable Allergies No Known Allergies Problems Problem Type Condition Code Onset Dates Condition Status Problem Polyarthritis M13.0 Active Problem Primary osteoarthritis involving multiple joints M15.0 Active Problem Fibromyalgia M79.7 Active Medications No Known Medications Results No Known Results Summary Purpose eClinicalWorks Submission
[2019-01-18] MEDS ORDERED: DIAZEPAM 5 MG TAB PO STA (18:41)
[2019-01-18] MEDS ORDERED: KETOROLAC TROMETHAMINE 30 MG/ML VIAL IV STA (18:41)
[2019-01-18] MEDS ORDERED: NABUMETONE500 MG PO (18:45)
[2019-01-18] MEDS ORDERED: GLIPIZIDE5 MG PO (18:45)
[2019-01-18] MEDS ORDERED: BACLOFEN10 MG PO (18:45)
[2019-01-18] MEDS ORDERED: PRAVASTATIN SOD80 MG PO (18:45)
[2019-01-18] MEDS ORDERED: LEFLUNOMIDE20 MG PO (18:45)
[2019-01-18] MEDS ORDERED: JANUVIA100 MG PO (18:45)
[2019-01-18] MEDS ORDERED: HYDROCODONE/APAP 5MG-325MG TAB PO ONE (18:45)
[2019-01-18] MEDS ORDERED: ULTRAM 50MG50 MG PO (18:45)
[2019-01-18 19:52] VITALS: BP 146/81
== END 2019-01-18 19:53 | disposition home or self-care (01) ==
LOC: ER 18:27
DX: M54.41 Lumbago with sciatica, right side (principal); I10 Essential (primary) hypertension; E11.9 Type 2 diabetes mellitus without complications
CPT/HCPCS: 99282; J1885

== ENCOUNTER → 2020-01-10 | Outpatient (CLI) | payer BC ==
[~2020-01-10] MED LIST changes: +BACLOFEN10 MG PO; +GLIPIZIDE5 MG PO; +JANUVIA100 MG PO; +LEFLUNOMIDE20 MG PO; +NABUMETONE500 MG PO; +PRAVASTATIN SOD80 MG PO; +ULTRAM 50MG50 MG PO
== END ==
LOC: MAMMO 09:11
PROVIDERS: ATTEND Family Medicine
DX: Z12.31 Encounter for screening mammogram for malignant neoplasm of breast (principal)
CPT/HCPCS: 77067

== ENCOUNTER → 2021-01-27 | Outpatient (CLI) | payer BC | LOC: MAMMO 12:08 | PROVIDERS: ATTEND Family Medicine | DX: Z12.31 Encounter for screening mammogram for malignant neoplasm of breast (principal) | CPT/HCPCS: 77067 ==

== ENCOUNTER → 2022-01-29 | Outpatient (CLI) | payer BC | LOC: MAMMO 10:50 | PROVIDERS: ATTEND Family Medicine | DX: Z12.31 Encounter for screening mammogram for malignant neoplasm of breast (principal) | CPT/HCPCS: 77067 ==

== ENCOUNTER → 2024-02-17 | Outpatient (REF) | payer BC | LOC: MAMMO 15:52 | PROVIDERS: ATTEND Family Medicine | DX: Z12.31 Encounter for screening mammogram for malignant neoplasm of breast (principal) | CPT/HCPCS: 77067 ==

== ENCOUNTER → 2024-05-29 | Outpatient (REF) | payer BC ==
[~2024-05-29] MED LIST changes: +IOPAMIDOL 370 MG/ML 100 ML INFUS..BTL INJ ONE; +METOPROLOL TARTRATE INJ 1 MG/ML VIAL ONE; +NITROGLYCERIN 0.4 MG SUBL ONE; +SODIUM CHLORIDE 0.9% 100 ML ONE
[2024-05-29 10:12] LABS: CREATININE, SERUM 0.74 mg/dL (0.57-1.11)
== END ==
LOC: CT 09:16
PROVIDERS: ATTEND Internal Medicine Cardiovascular Disease
DX: R07.9 Chest pain, unspecified (principal)
CPT/HCPCS: 36415; 75574; 75580; 82565; 84520; J7050; Q9967

== ENCOUNTER 2024-08-24 18:14 | Inpatient (IN) | payer BC ==
[~2024-08-24] VITALS: Ht 149.9 cm; Wt 69.4 kg
[~2024-08-24 18:14] MED LIST changes: -IOPAMIDOL 370 MG/ML 100 ML INFUS..BTL INJ ONE; -METOPROLOL TARTRATE INJ 1 MG/ML VIAL ONE; -NITROGLYCERIN 0.4 MG SUBL ONE; -SODIUM CHLORIDE 0.9% 100 ML ONE
[2024-08-24 18:55] LABS: BASOPHILS # (AUTO) 0.1 (0.0-0.1); BASOPHILS % 1.1 % (0.0-1.0); EOSINOPHILS # (AUTO) 0.1 (0.0-0.4); EOSINOPHILS % 2.1 % (0.0-6.0); HEMATOCRIT 39.9 % (34.2-44.1); HEMOGLOBIN 13.3 g/dL (12.0-16.0); LYMPHOCYTES # (AUTO) 1.5 (1.0-3.2); LYMPHOCYTES % 24.4 % (18.0-39.1); MEAN CORPUSCULAR HEMOGLOBIN 29.4 pg (28-32); MEAN CORPUSCULAR HGB CONC 33.3 g/dL (31-35); MEAN CORPUSCULAR VOLUME 88.1 fL (81-99); MONOCYTES # (AUTO) 0.5 (0.2-0.8); MONOCYTES % 8.6 % (4.4-11.3); NEUTROPHILS # (AUTO) 3.9 (2.1-6.9); PLATELET COUNT 230 x10e3/uL (140-360); RED BLOOD COUNT 4.53 x10e6/uL (3.6-5.1); WHITE BLOOD COUNT 6.14 x10e3/uL (4.8-10.8)
[2024-08-24 19:16] LABS: ALANINE AMINOTRANSFERASE 132 IU/L (0-55); ALBUMIN 3.3 g/dL (3.5-5.0); ALBUMIN/GLOBULIN RATIO 0.9 (0.8-2.0); ALKALINE PHOSPHATASE 423 IU/L (40-150); ANION GAP 17.2 mmol/L (8-16); BILIRUBIN,TOTAL 1.1 mg/dL (0.2-1.2); BLOOD UREA NITROGEN 16 mg/dL (7-26); BUN/CREATININE RATIO 19 (6-25); CALCIUM 8.4 mg/dL (8.4-10.2); CARBON DIOXIDE 16 mmol/L (22-29); CHLORIDE 101 mmol/L (98-107); CREATINE KINASE 288 IU/L (29-168); CREATININE, SERUM 0.86 mg/dL (0.57-1.11); EST GLOMERULAR FILTRATION RATE 74 ML/MIN (>=60); GLUCOSE 145 mg/dL (74-118); LIPASE 69 U/L (8-78); POTASSIUM 4.2 mmol/L (3.5-5.1); SODIUM 130 mmol/L (136-145); TOTAL PROTEIN 6.9 g/dL (6.5-8.1)
[2024-08-24 19:25] LABS: TROPONIN I < 0.001 ng/mL (0-0.300)
[2024-08-24] MEDS: KETOROLAC TROMETHAMINE 30 MG/ML VIAL IV STA (19:36)
[2024-08-24] MEDS: ONDANSETRON HCL INJ 2MG/ML 2ML 2 MG/ML VIAL IV STA (19:36)
[2024-08-24] MEDS: SODIUM CHLORIDE 0.9% 1000ML 1,000 ML IV STA ×2 (19:36→19:37)
[2024-08-24] MEDS: Morphine 4mg INJECTION 4 MG/ML INJ IV STA (19:37)
[2024-08-24] MEDS: ACETAMINOPHEN 325 MG TAB PO STA (19:37)
[2024-08-24] MEDS ORDERED: IOPAMIDOL 370 MG/ML 100 ML INFUS..BTL INJ ONE (19:51)
[2024-08-24 20:04] LABS: BILIRUBIN,URINE SMALL (NEGATIVE); CLARITY,URINE CLEAR (CLEAR); COLOR,URINE YELLOW (YELLOW); GLUCOSE, URINE >=1000 (NEGATIVE); KETONES,URINE 2+ (NEGATIVE); LEUKOCYTE ESTERASE ,URINE NEGATIVE (NEGATIVE); NITRITE,URINE NEGATIVE (NEGATIVE); PH,URINE 6 (5 - 7); PROTEIN,URINE DIPSTICK 2+ (NEGATIVE); URINE UROBILINOGEN 0.2 mg/dL (0.2 - 1)
[2024-08-24 20:08] LABS: BACTERIA,URINE FEW /HPF; EPITHELIAL CELLS,URINE FEW /LPF; RBC,URINE 0-5 /HPF (0-5); TRANSITIONAL EPI CELLS,URINE FEW
[2024-08-25] VITALS (11 sets, daily range): BP systolic 115–136; BP diastolic 42–69; PULSE 62–98; RESP 16–20; TEMP 98.1–100.2; O2SAT 94–100
[2024-08-25] MEDS: SODIUM CHLORIDE 0.9% 1000ML 1,000 ML IV SCH (01:57)
[2024-08-25] MEDS: KETOROLAC TROMETHAMINE 30 MG/ML VIAL IV PRN (02:50)
[2024-08-25 03:31] LABS: TROPONIN I 0.002 ng/mL (0-0.300)
[2024-08-25] MEDS ORDERED: ASPIRIN81 MG PO (10:54)
[2024-08-25] MEDS ORDERED: PROTONIX20 MG PO (10:57)
[2024-08-25] MEDS ORDERED: LYRICA150 MG PO (10:57)
[2024-08-25] MEDS ORDERED: SYNJARDY 12.5-1 EACH (10:58)
[2024-08-25] MEDS ORDERED: DOCUSATE SODIUM 100 MG CAP PO PRN (13:00)
[2024-08-25 14:20] LABS: ANION GAP 12.3 mmol/L (8-16); CALCIUM 7.7 mg/dL (8.4-10.2); CREATININE, SERUM 0.68 mg/dL (0.57-1.11)
[2024-08-25 14:22] LABS: POTASSIUM 3.3 mmol/L (3.5-5.1)
[2024-08-25 14:31] LABS: ALBUMIN 2.6 g/dL (3.5-5.0); BILIRUBIN,DIRECT 0.6 mg/dL (0.0-0.5); TOTAL PROTEIN 5.2 g/dL (6.5-8.1)
[2024-08-25 14:35] LABS: CREATINE KINASE 163 IU/L (29-168)
[2024-08-25 14:42] LABS: TROPONIN I < 0.001 ng/mL (0-0.300)
[2024-08-26] VITALS (9 sets, daily range): BP systolic 116–129; BP diastolic 61–73; PULSE 82–105; RESP 17–20; TEMP 97.7–100.6; O2SAT 95–100
[2024-08-26 05:51] LABS: BASOPHILS % 0.7 % (0.0-1.0); EOSINOPHILS % 0.2 % (0.0-6.0); HEMATOCRIT 34.5 % (34.2-44.1); HEMOGLOBIN 11.5 g/dL (12.0-16.0); LYMPHOCYTES # (AUTO) 0.9 (1.0-3.2); LYMPHOCYTES % 15.9 % (18.0-39.1); MEAN CORPUSCULAR HEMOGLOBIN 29.8 pg (28-32); MEAN CORPUSCULAR HGB CONC 33.3 g/dL (31-35); MEAN CORPUSCULAR VOLUME 89.4 fL (81-99); MONOCYTES # (AUTO) 0.4 (0.2-0.8); MONOCYTES % 6.3 % (4.4-11.3); NEUTROPHILS # (AUTO) 4.2 (2.1-6.9); NEUTROPHILS % 75.8 % (38.7-80.0); PLATELET COUNT 184 x10e3/uL (140-360); RED BLOOD COUNT 3.86 x10e6/uL (3.6-5.1); RED CELL DISTRIBUTION WIDTH 14.7 % (11.7-14.4); WHITE BLOOD COUNT 5.55 x10e3/uL (4.8-10.8)
[2024-08-26 06:28] LABS: ALBUMIN 2.5 g/dL (3.5-5.0); ALBUMIN/GLOBULIN RATIO 0.9 (0.8-2.0); ANION GAP 13.4 mmol/L (8-16); BILIRUBIN,TOTAL 0.9 mg/dL (0.2-1.2); CALCIUM 7.7 mg/dL (8.4-10.2); CREATININE, SERUM 0.7 mg/dL (0.57-1.11); TOTAL PROTEIN 5.2 g/dL (6.5-8.1)
[2024-08-26 06:36] LABS: POTASSIUM 3.4 mmol/L (3.5-5.1)
[2024-08-26 06:42] LABS: CREATINE KINASE 141 IU/L (29-168)
[2024-08-26 06:49] LABS: TROPONIN I < 0.001 ng/mL (0-0.300)
[2024-08-26 07:34] LABS: ALBUMIN 2.5 g/dL (3.5-5.0); BILIRUBIN,DIRECT 0.6 mg/dL (0.0-0.5); TOTAL PROTEIN 5.2 g/dL (6.5-8.1)
[2024-08-27] VITALS (11 sets, daily range): BP systolic 117–147; BP diastolic 59–93; PULSE 86–108; RESP 17–20; TEMP 97.8–100.7; O2SAT 93–99
[2024-08-27 06:04] LABS: ANION GAP 13.3 mmol/L (8-16); CALCIUM 7.7 mg/dL (8.4-10.2); CREATININE, SERUM 0.66 mg/dL (0.57-1.11)
[2024-08-27 06:06] LABS: POTASSIUM 3.3 mmol/L (3.5-5.1)
[2024-08-27 12:58] LABS: ALBUMIN 2.5 g/dL (3.5-5.0); BILIRUBIN,DIRECT 0.6 mg/dL (0.0-0.5); BILIRUBIN,TOTAL 0.9 mg/dL (0.2-1.2); TOTAL PROTEIN 5.2 g/dL (6.5-8.1)
[2024-08-27] MEDS: Doxycycline IV 100 MG in SODIUM CHLORIDE 0.9% 100 ML IV SCH (14:57)
[2024-08-28] VITALS (9 sets, daily range): BP systolic 133–146; BP diastolic 72–90; PULSE 98–115; RESP 18–20; TEMP 98.7–100; O2SAT 94–100
[2024-08-28 06:43] LABS: BASOPHILS # (AUTO) 0.1 (0.0-0.1); BASOPHILS % 0.9 % (0.0-1.0); EOSINOPHILS % 0.2 % (0.0-6.0); HEMATOCRIT 31.2 % (34.2-44.1); HEMOGLOBIN 10.5 g/dL (12.0-16.0); LYMPHOCYTES % 18.9 % (18.0-39.1); MEAN CORPUSCULAR HEMOGLOBIN 29.2 pg (28-32); MEAN CORPUSCULAR HGB CONC 33.7 g/dL (31-35); MEAN CORPUSCULAR VOLUME 86.7 fL (81-99); MONOCYTES # (AUTO) 0.4 (0.2-0.8); MONOCYTES % 7.4 % (4.4-11.3); NEUTROPHILS # (AUTO) 3.8 (2.1-6.9); NEUTROPHILS % 70.7 % (38.7-80.0); PLATELET COUNT 158 x10e3/uL (140-360); RED CELL DISTRIBUTION WIDTH 14.6 % (11.7-14.4)
[2024-08-28 07:16] LABS: ALBUMIN 2.3 g/dL (3.5-5.0); ALBUMIN/GLOBULIN RATIO 0.9 (0.8-2.0); BILIRUBIN,TOTAL 0.9 mg/dL (0.2-1.2); CALCIUM 7.4 mg/dL (8.4-10.2); CREATININE, SERUM 0.59 mg/dL (0.57-1.11); TOTAL PROTEIN 4.8 g/dL (6.5-8.1)
[2024-08-28] MEDS: SODIUM BICARBONATE 8.4% VIAL 150 ML in DEXTROSE 5% 1,000 ML IV SCH (10:34)
[2024-08-29] VITALS (11 sets, daily range): BP systolic 109–142; BP diastolic 63–81; PULSE 68–117; RESP 17–18; TEMP 97.9–100.3; O2SAT 93–100
[2024-08-29 07:00] LABS: BASOPHILS # (AUTO) 0.1 (0.0-0.1); BASOPHILS % 0.9 % (0.0-1.0); EOSINOPHILS % 0.6 % (0.0-6.0); HEMATOCRIT 32.4 % (34.2-44.1); HEMOGLOBIN 11.5 g/dL (12.0-16.0); LYMPHOCYTES # (AUTO) 0.7 (1.0-3.2); LYMPHOCYTES % 10.1 % (18.0-39.1); MEAN CORPUSCULAR HEMOGLOBIN 29.8 pg (28-32); MEAN CORPUSCULAR HGB CONC 35.5 g/dL (31-35); MEAN CORPUSCULAR VOLUME 83.9 fL (81-99); MONOCYTES # (AUTO) 0.6 (0.2-0.8); MONOCYTES % 8.4 % (4.4-11.3); NEUTROPHILS # (AUTO) 5.2 (2.1-6.9); PLATELET COUNT 145 x10e3/uL (140-360); RED BLOOD COUNT 3.86 x10e6/uL (3.6-5.1); RED CELL DISTRIBUTION WIDTH 14.2 % (11.7-14.4); WHITE BLOOD COUNT 6.66 x10e3/uL (4.8-10.8)
[2024-08-29 07:20] LABS: ANION GAP 12.8 mmol/L (8-16); CALCIUM 7.6 mg/dL (8.4-10.2); CREATININE, SERUM 0.6 mg/dL (0.57-1.11)
[2024-08-29 07:28] LABS: POTASSIUM 2.8 mmol/L (3.5-5.1)
[2024-08-29 07:34] LABS: ALBUMIN 2.4 g/dL (3.5-5.0); BILIRUBIN,DIRECT 0.6 mg/dL (0.0-0.5); TOTAL PROTEIN 4.9 g/dL (6.5-8.1)
[2024-08-29] MEDS: POTASSIUM CHLORIDE 10MEQ EA PO ONE (08:04)
[2024-08-29] MEDS ORDERED: Doxycycline IV 100 MG in SODIUM CHLORIDE 0.9% 100 ML IV SCH (08:30)
[2024-08-29] MEDS: PREDNISONE 20 MG TAB PO SCH (09:47)
[2024-08-29] MEDS: METRONIDAZOLE 500MG/NS 100ML 100 ML IV SCH (13:35)
[2024-08-29] MEDS: INSULIN LISPRO 100 UNIT/1 ML 3ML VIAL SQ SCH (21:45)
[2024-08-30] VITALS (9 sets, daily range): BP systolic 109–138; BP diastolic 61–74; PULSE 94–120; RESP 16–22; TEMP 98.1–100.6; O2SAT 92–99
[2024-08-30 05:13] LABS: MYCOPLASMA PNEUMO IGG 177 U/mL (0-99); MYCOPLASMA PNEUMO IGM <770 U/mL (0-769)
[2024-08-30 05:24] LABS: CDIFF AG QUIK CHEK **POSITIVE** (NEGATIVE); CDIFF TOX QUIK CHEK **POSITIVE** (NEGATIVE)
[2024-08-30 05:58] LABS: TOXOPLASMA IGG ANTIBODY <3.0
[2024-08-30 05:59] LABS: TOXOPLASMA IGM ANTIBODY <3.0
[2024-08-30 06:00] LABS: HEPATITIS A ANTIBODY IGM (P) Negative; HEPATITIS B CORE IGM (P) Negative; HEPATITIS B SURFACE AG (P) Negative; HEPATITIS C ANTIBODY Non Reactive
[2024-08-30 07:12] LABS: RHEUMATOID FACTOR 10.3 IU/mL (<14.0)
[2024-08-30] MEDS: VANCOMYCIN HCL 125 MG CAPSULE PO SCH (08:12)
[2024-08-30 10:45] LABS: BASOPHILS % 0.1 % (0.0-1.0); EOSINOPHILS % 0.1 % (0.0-6.0); HEMATOCRIT 33.7 % (34.2-44.1); HEMOGLOBIN 11.9 g/dL (12.0-16.0); LYMPHOCYTES # (AUTO) 0.7 (1.0-3.2); LYMPHOCYTES % 10.5 % (18.0-39.1); MEAN CORPUSCULAR HEMOGLOBIN 29.6 pg (28-32); MEAN CORPUSCULAR HGB CONC 35.3 g/dL (31-35); MEAN CORPUSCULAR VOLUME 83.8 fL (81-99); MONOCYTES # (AUTO) 0.4 (0.2-0.8); MONOCYTES % 6.3 % (4.4-11.3); NEUTROPHILS # (AUTO) 5.6 (2.1-6.9); NEUTROPHILS % 80.7 % (38.7-80.0); PLATELET COUNT 163 x10e3/uL (140-360); RED BLOOD COUNT 4.02 x10e6/uL (3.6-5.1); RED CELL DISTRIBUTION WIDTH 14.1 % (11.7-14.4); WHITE BLOOD COUNT 6.93 x10e3/uL (4.8-10.8)
[2024-08-30 11:06] LABS: ANION GAP 15.6 mmol/L (8-16); CALCIUM 8.2 mg/dL (8.4-10.2); CREATININE, SERUM 0.64 mg/dL (0.57-1.11)
[2024-08-30 11:16] LABS: POTASSIUM 2.6 mmol/L (3.5-5.1)
[2024-08-30 11:22] LABS: ALBUMIN 2.7 g/dL (3.5-5.0); BILIRUBIN,DIRECT 0.7 mg/dL (0.0-0.5); BILIRUBIN,TOTAL 1.3 mg/dL (0.2-1.2); TOTAL PROTEIN 5.6 g/dL (6.5-8.1)
[2024-08-30] MEDS: POTASSIUM CHLORIDE 20MEQ/100ML 200 ML IV ONE (11:55)
[2024-08-30] MEDS: Morphine 4mg INJECTION 4 MG/ML INJ IV PRN (17:45)
[2024-08-30] MEDS: IBUPROFEN 600 MG TAB PO PRN (23:23)
[2024-08-31] VITALS (10 sets, daily range): BP systolic 101–132; BP diastolic 60–81; PULSE 87–113; RESP 16–20; TEMP 95–99.7; O2SAT 94–96
[2024-08-31] MEDS: ONDANSETRON HCL INJ 2MG/ML 2ML 2 MG/ML VIAL IV PRN (03:19)
[2024-08-31] MEDS: SODIUM CHLORIDE 0.45% 1,000 ML IV SCH (10:22)
[2024-08-31 12:45] LABS: ALBUMIN 2.3 g/dL (3.5-5.0); ANION GAP 12.5 mmol/L (8-16); BILIRUBIN,TOTAL 1.4 mg/dL (0.2-1.2); CALCIUM 7.5 mg/dL (8.4-10.2); CREATININE, SERUM 0.61 mg/dL (0.57-1.11); TOTAL PROTEIN 4.6 g/dL (6.5-8.1)
[2024-08-31 12:46] LABS: BASOPHILS % 0.3 % (0.0-1.0); EOSINOPHILS % 0.3 % (0.0-6.0); HEMATOCRIT 31.5 % (34.2-44.1); HEMOGLOBIN 10.8 g/dL (12.0-16.0); LYMPHOCYTES # (AUTO) 0.5 (1.0-3.2); LYMPHOCYTES % 7.9 % (18.0-39.1); MEAN CORPUSCULAR HEMOGLOBIN 28.6 pg (28-32); MEAN CORPUSCULAR HGB CONC 34.3 g/dL (31-35); MEAN CORPUSCULAR VOLUME 83.6 fL (81-99); MONOCYTES # (AUTO) 0.3 (0.2-0.8); MONOCYTES % 4.8 % (4.4-11.3); NEUTROPHILS # (AUTO) 5.2 (2.1-6.9); PLATELET COUNT 135 x10e3/uL (140-360); RED BLOOD COUNT 3.77 x10e6/uL (3.6-5.1); RED CELL DISTRIBUTION WIDTH 14.6 % (11.7-14.4); WHITE BLOOD COUNT 6.24 x10e3/uL (4.8-10.8)
[2024-08-31 12:53] LABS: POTASSIUM 2.5 mmol/L (3.5-5.1)
[2024-08-31] MEDS: POTASSIUM CHLORIDE 10MEQ EA PO SCH (15:26)
[2024-08-31] MEDS: KCL 40MEQ/0.9% SOD CHL 1,000 ML IV SCH (15:28)
[2024-08-31] MEDS: METOPROLOL TARTRATE INJ 1 MG/ML VIAL IV PRN (17:51)
[2024-08-31] MEDS: MELATONIN 3 MG TAB PO PRN (21:17)
[2024-09-01] VITALS (13 sets, daily range): BP systolic 103–139; BP diastolic 61–92; PULSE 77–103; RESP 16–20; TEMP 97.6–100.2; O2SAT 92–100
[2024-09-01] MEDS: DIPHENOXYLATE/ATROPINE TAB PO STA (01:25)
[2024-09-01 11:26] LABS: ANION GAP 14.4 mmol/L (8-16); CALCIUM 7.9 mg/dL (8.4-10.2); CREATININE, SERUM 0.61 mg/dL (0.57-1.11); POTASSIUM 4.4 mmol/L (3.5-5.1)
[2024-09-01 11:28] LABS: MAGNESIUM 1.7 MG/DL (1.3-2.1); PHOSPHORUS 1.5 MG/DL (2.3-4.7)
[2024-09-02] VITALS (11 sets, daily range): BP systolic 100–128; BP diastolic 56–83; PULSE 79–107; RESP 17–20; TEMP 97.5–98; O2SAT 95–98
[2024-09-02] MEDS: LOPERAMIDE HCL 2 MG CAP PO ONE ×2 (00:29→21:04)
[2024-09-02] MEDS: VANCOMYCIN HCL 125 MG CAPSULE PO SCH ×2 (00:29→21:04)
[2024-09-02] MEDS: DICYCLOMINE HCL 20 MG TAB PO SCH (08:37)
[2024-09-02 15:52] LABS: BASOPHILS % 0.3 % (0.0-1.0); EOSINOPHILS % 0.2 % (0.0-6.0); HEMATOCRIT 33.5 % (34.2-44.1); HEMOGLOBIN 11.3 g/dL (12.0-16.0); LYMPHOCYTES # (AUTO) 0.7 (1.0-3.2); LYMPHOCYTES % 7.7 % (18.0-39.1); MEAN CORPUSCULAR HEMOGLOBIN 28.8 pg (28-32); MEAN CORPUSCULAR HGB CONC 33.7 g/dL (31-35); MEAN CORPUSCULAR VOLUME 85.5 fL (81-99); MONOCYTES # (AUTO) 0.4 (0.2-0.8); MONOCYTES % 4.4 % (4.4-11.3); NEUTROPHILS # (AUTO) 7.8 (2.1-6.9); PLATELET COUNT 130 x10e3/uL (140-360); RED BLOOD COUNT 3.92 x10e6/uL (3.6-5.1); RED CELL DISTRIBUTION WIDTH 15.8 % (11.7-14.4); WHITE BLOOD COUNT 9.15 x10e3/uL (4.8-10.8)
[2024-09-02 16:14] LABS: ALBUMIN 2.4 g/dL (3.5-5.0); ANION GAP 14.6 mmol/L (8-16); BILIRUBIN,TOTAL 1.5 mg/dL (0.2-1.2); CALCIUM 7.6 mg/dL (8.4-10.2); CREATININE, SERUM 0.55 mg/dL (0.57-1.11); TOTAL PROTEIN 4.8 g/dL (6.5-8.1)
[2024-09-02 16:28] LABS: POTASSIUM 5.6 mmol/L (3.5-5.1)
[2024-09-02] MEDS: METRONIDAZOLE 500MG/NS 100ML 100 ML IV SCH (21:04)
[2024-09-03] VITALS (21 sets, daily range): BP systolic 100–136; BP diastolic 48–78; PULSE 101–126; RESP 18–37; TEMP 98.1–101.5; O2SAT 74–100
[2024-09-03 05:59] LABS: BASOPHILS % 0.4 % (0.0-1.0); EOSINOPHILS % 0.3 % (0.0-6.0); HEMATOCRIT 33.6 % (34.2-44.1); HEMOGLOBIN 11.9 g/dL (12.0-16.0); LYMPHOCYTES # (AUTO) 1.7 (1.0-3.2); LYMPHOCYTES % 17.5 % (18.0-39.1); MEAN CORPUSCULAR HEMOGLOBIN 29.1 pg (28-32); MEAN CORPUSCULAR HGB CONC 35.4 g/dL (31-35); MEAN CORPUSCULAR VOLUME 82.2 fL (81-99); MONOCYTES # (AUTO) 0.5 (0.2-0.8); MONOCYTES % 4.9 % (4.4-11.3); NEUTROPHILS # (AUTO) 7.4 (2.1-6.9); NEUTROPHILS % 74.9 % (38.7-80.0); PLATELET COUNT 129 x10e3/uL (140-360); RED BLOOD COUNT 4.09 x10e6/uL (3.6-5.1); RED CELL DISTRIBUTION WIDTH 15.5 % (11.7-14.4); WHITE BLOOD COUNT 9.86 x10e3/uL (4.8-10.8)
[2024-09-03 06:27] LABS: MAGNESIUM 1.8 MG/DL (1.3-2.1); PHOSPHORUS 1.8 MG/DL (2.3-4.7)
[2024-09-03 06:29] LABS: ALBUMIN 2.6 g/dL (3.5-5.0); ANION GAP 12.5 mmol/L (8-16); BILIRUBIN,TOTAL 1.7 mg/dL (0.2-1.2); CALCIUM 7.9 mg/dL (8.4-10.2); CREATININE, SERUM 0.68 mg/dL (0.57-1.11); POTASSIUM 4.5 mmol/L (3.5-5.1); TOTAL PROTEIN 5.1 g/dL (6.5-8.1)
[2024-09-03 07:23] LABS: BAND NEUTROPHILS % (MANUAL) 10 %; LYMPHOCYTES % (MANUAL) 8 % (19-48); MONOCYTES % (MANUAL) 1 % (3.4-9.0); NEUTROPHILS % (MANUAL) 72 % (40-74); REACTIVE LYMPHOCYTES 9
[2024-09-03 07:24] LABS: PLATELET ESTIMATE SLIGHTLY DECREASED; PLATELET MORPHOLOGY COMMENT NORMAL; RBC MORPHOLOGY COMMENT NORMAL
[2024-09-03] MEDS: CHOLESTYRAMINE 4 GM PACKET PO SCH (09:00)
[2024-09-03] MEDS: FUROSEMIDE INJ 10 MG/ML 2 ML VIAL IV ONE (16:34)
[2024-09-03] MEDS ORDERED: METOPROLOL SUCCINATE 25 MG TAB XL PO SCH (18:00)
[2024-09-03] MEDS ORDERED: IOPAMIDOL 370 MG/ML 100 ML INFUS..BTL INJ ONE (19:01)
[2024-09-03] MEDS: Doxycycline IV 100 MG in SODIUM CHLORIDE 0.9% 100 ML IV SCH (20:07)
[2024-09-03] MEDS: METOPROLOL TARTRATE 25 MG TAB PO SCH (20:20)
[2024-09-03] MEDS: VANCOMYCIN HCL 125 MG CAPSULE PO SCH (23:16)
[2024-09-04] VITALS (57 sets, daily range): BP systolic 85–140; BP diastolic 52–97; PULSE 72–121; RESP 24–51; TEMP 98.8–101.1; O2SAT 86–100
[2024-09-04] MEDS ORDERED: LACTATED RINGER'S 1,000 ML INJ ONE (01:15)
[2024-09-04 07:01] LABS: BASOPHILS # (AUTO) 0.1 (0.0-0.1); BASOPHILS % 0.6 % (0.0-1.0); HEMATOCRIT 29.7 % (34.2-44.1); HEMOGLOBIN 10.9 g/dL (12.0-16.0); LYMPHOCYTES # (AUTO) 1.2 (1.0-3.2); LYMPHOCYTES % 15.6 % (18.0-39.1); MEAN CORPUSCULAR HGB CONC 36.7 g/dL (31-35); MONOCYTES # (AUTO) 0.4 (0.2-0.8); MONOCYTES % 4.8 % (4.4-11.3); NEUTROPHILS # (AUTO) 6.1 (2.1-6.9); NEUTROPHILS % 77.4 % (38.7-80.0); PLATELET COUNT 118 x10e3/uL (140-360); RED BLOOD COUNT 3.76 x10e6/uL (3.6-5.1); RED CELL DISTRIBUTION WIDTH 15.1 % (11.7-14.4); WHITE BLOOD COUNT 7.89 x10e3/uL (4.8-10.8)
[2024-09-04 07:20] LABS: ALBUMIN 2.2 g/dL (3.5-5.0); ANION GAP 12.5 mmol/L (8-16); BILIRUBIN,DIRECT 1.5 mg/dL (0.0-0.5); BILIRUBIN,TOTAL 2.1 mg/dL (0.2-1.2); CALCIUM 7.2 mg/dL (8.4-10.2); CREATININE, SERUM 0.67 mg/dL (0.57-1.11); POTASSIUM 3.5 mmol/L (3.5-5.1); TOTAL PROTEIN 4.3 g/dL (6.5-8.1)
[2024-09-04] MEDS: SODIUM BICARBONATE 8.4% VIAL 150 ML in DEXTROSE 5% 1,000 ML IV SCH (07:42)
[2024-09-04] MEDS: ALBUMIN 5% 0.05 GM/ML BTL IV ONE (07:45)
[2024-09-04 08:31] LABS: ABG PCO2 27 mmHg (35-45); ABG PH 7.45 (7.35-7.45); ABG PO2 159 mmHg (80-105)
[2024-09-04 08:32] LABS: ABG HCO3 19 mmol/L (22-26); ABG TCO2 19
[2024-09-04] MEDS: DEXMEDETOMIDINE 400MCG/NS100ML 100 ML IV PRN (08:39)
[2024-09-04 09:18] LABS: INR 1.57; PROTHROMBIN TIME 19.6 seconds (11.9-14.5)
[2024-09-04 09:19] LABS: PARTIAL THROMBOPLASTIN TIME 52.4 seconds (23.8-35.5)
[2024-09-04 09:35] LABS: BAND NEUTROPHILS % (MANUAL) 5 %; LYMPHOCYTES % (MANUAL) 8 % (19-48); NEUTROPHILS % (MANUAL) 81 % (40-74); PLATELET ESTIMATE MODERATELY DECREASED; PLATELET MORPHOLOGY COMMENT NORMAL; REACTIVE LYMPHOCYTES 6
[2024-09-04 09:36] LABS: INFLUENZA A AG NEGATIVE (NEGATIVE); INFLUENZA B AG NEGATIVE (NEGATIVE)
[2024-09-04 09:36] LABS: HYPOCHROMASIA SLIGHT; POLYCHROMASIA FEW
[2024-09-04] MEDS: POTASSIUM CHLORIDE 20MEQ/100ML 200 ML IV ONE (11:07)
[2024-09-04] MEDS: ENOXAPARIN SOD INJ 60 MG/0.6 ML SYR SC SCH (16:03)
[2024-09-04] MEDS: METHYLPREDNISOLONE SOD SUCC 40 MG/ML VIAL 1ML IV SCH (17:10)
[2024-09-04 18:59] LABS: ABG PCO2 31 mmHg (35-45); ABG PH 7.44 (7.35-7.45)
[2024-09-04 19:00] LABS: ABG PO2 30 mmHg (80-105)
[2024-09-04 19:01] LABS: ABG HCO3 21 mmol/L (22-26); ABG TCO2 22
[2024-09-05] VITALS (66 sets, daily range): BP systolic 84–163; BP diastolic 43–142; PULSE 38–100; RESP 12–54; TEMP 97.7–98.6; O2SAT 82–99
[2024-09-05 07:03] LABS: BASOPHILS % 0.2 % (0.0-1.0); HEMATOCRIT 25.9 % (34.2-44.1); HEMOGLOBIN 9.4 g/dL (12.0-16.0); LYMPHOCYTES # (AUTO) 0.8 (1.0-3.2); LYMPHOCYTES % 16.4 % (18.0-39.1); MEAN CORPUSCULAR HGB CONC 36.3 g/dL (31-35); MEAN CORPUSCULAR VOLUME 79.9 fL (81-99); MONOCYTES # (AUTO) 0.1 (0.2-0.8); MONOCYTES % 2.5 % (4.4-11.3); NEUTROPHILS # (AUTO) 3.8 (2.1-6.9); NEUTROPHILS % 79.4 % (38.7-80.0); RED BLOOD COUNT 3.24 x10e6/uL (3.6-5.1); RED CELL DISTRIBUTION WIDTH 15.3 % (11.7-14.4); WHITE BLOOD COUNT 4.81 x10e3/uL (4.8-10.8)
[2024-09-05 07:13] LABS: PLATELET COUNT 97 x10e3/uL (140-360)
[2024-09-05 07:25] LABS: ALBUMIN 2.1 g/dL (3.5-5.0); ALBUMIN/GLOBULIN RATIO 1.3 (0.8-2.0); BILIRUBIN,TOTAL 2.3 mg/dL (0.2-1.2); CREATININE, SERUM 0.64 mg/dL (0.57-1.11); TOTAL PROTEIN 3.7 g/dL (6.5-8.1)
[2024-09-05] MEDS: SODIUM BICARBONATE 8.4% VIAL 50 ML in SODIUM CHLORIDE 0.45% 1,000 ML IV SCH (10:31)
[2024-09-05 10:55] LABS: LYMPHOCYTES % (MANUAL) 3 % (19-48); MONOCYTES % (MANUAL) 2 % (3.4-9.0); NEUTROPHILS % (MANUAL) 90 % (40-74)
[2024-09-05 10:56] LABS: BAND NEUTROPHILS % (MANUAL) 3 %; MYELOCYTES % (MANUAL) 1 % (0-0); NUCLEATED RED BLOOD CELLS 1; PLATELET ESTIMATE SLIGHTLY DECREASED; PLATELET MORPHOLOGY COMMENT NORMAL; RBC MORPHOLOGY COMMENT NORMAL; REACTIVE LYMPHOCYTES 1
[2024-09-06] VITALS (35 sets, daily range): BP systolic 82–122; BP diastolic 52–83; PULSE 65–90; RESP 20–53; TEMP 99.1–99.3; O2SAT 91–100
[2024-09-06 07:23] LABS: BASOPHILS % 0.1 % (0.0-1.0); HEMATOCRIT 28.4 % (34.2-44.1); HEMOGLOBIN 10.3 g/dL (12.0-16.0); LYMPHOCYTES # (AUTO) 0.4 (1.0-3.2); LYMPHOCYTES % 4.4 % (18.0-39.1); MEAN CORPUSCULAR HEMOGLOBIN 29.3 pg (28-32); MEAN CORPUSCULAR HGB CONC 36.3 g/dL (31-35); MEAN CORPUSCULAR VOLUME 80.7 fL (81-99); MONOCYTES # (AUTO) 0.3 (0.2-0.8); MONOCYTES % 3.4 % (4.4-11.3); NEUTROPHILS # (AUTO) 8.5 (2.1-6.9); NEUTROPHILS % 90.6 % (38.7-80.0); PLATELET COUNT 124 x10e3/uL (140-360); RED BLOOD COUNT 3.52 x10e6/uL (3.6-5.1); RED CELL DISTRIBUTION WIDTH 15.9 % (11.7-14.4)
[2024-09-06 07:29] LABS: WHITE BLOOD COUNT 9.36 x10e3/uL (4.8-10.8)
[2024-09-06 07:50] LABS: ALBUMIN/GLOBULIN RATIO 1.2 (0.8-2.0); ANION GAP 12.9 mmol/L (8-16); BILIRUBIN,TOTAL 2.8 mg/dL (0.2-1.2); CREATININE, SERUM 0.56 mg/dL (0.57-1.11); MAGNESIUM 1.7 MG/DL (1.3-2.1); POTASSIUM 3.9 mmol/L (3.5-5.1); TOTAL PROTEIN 3.7 g/dL (6.5-8.1)
[2024-09-06 08:21] LABS: CALCIUM 6.6 mg/dL (8.4-10.2)
[2024-09-06 09:17] LABS: ABG HCO3 24 mmol/L (22-26); ABG PCO2 37 mmHg (35-45); ABG PH 7.43 (7.35-7.45); ABG PO2 112 mmHg (80-105)
[2024-09-06 09:18] LABS: ABG TCO2 26
[2024-09-06] MEDS ORDERED: SODIUM BICARBONATE 8.4% VIAL 50 ML in SODIUM CHLORIDE 0.45% 1,000 ML IV ONE (18:00)
[2024-09-06] MEDS: SODIUM BICARBONATE 8.4% VIAL 50 ML in SODIUM CHLORIDE 0.45% 1,000 ML IV SCH (22:44)
[2024-09-07] VITALS (16 sets, daily range): BP systolic 76–125; BP diastolic 49–78; PULSE 68–101; RESP 15–43; TEMP 99.1–99.4; O2SAT 89–98
[2024-09-07] MEDS ORDERED: LACTATED RINGER'S 1,000 ML INJ ONE (05:30)
[2024-09-07 07:05] LABS: BASOPHILS % 0.1 % (0.0-1.0); HEMATOCRIT 29.3 % (34.2-44.1); HEMOGLOBIN 10.5 g/dL (12.0-16.0); LYMPHOCYTES # (AUTO) 0.4 (1.0-3.2); LYMPHOCYTES % 3.7 % (18.0-39.1); MEAN CORPUSCULAR HEMOGLOBIN 28.7 pg (28-32); MEAN CORPUSCULAR HGB CONC 35.8 g/dL (31-35); MEAN CORPUSCULAR VOLUME 80.1 fL (81-99); MONOCYTES # (AUTO) 0.3 (0.2-0.8); MONOCYTES % 3.2 % (4.4-11.3); NEUTROPHILS # (AUTO) 8.9 (2.1-6.9); NEUTROPHILS % 91.7 % (38.7-80.0); PLATELET COUNT 137 x10e3/uL (140-360); RED BLOOD COUNT 3.66 x10e6/uL (3.6-5.1); RED CELL DISTRIBUTION WIDTH 16.3 % (11.7-14.4); WHITE BLOOD COUNT 9.75 x10e3/uL (4.8-10.8)
[2024-09-07 07:35] LABS: ALBUMIN 1.8 g/dL (3.5-5.0); ALBUMIN/GLOBULIN RATIO 1.1 (0.8-2.0); BILIRUBIN,TOTAL 2.8 mg/dL (0.2-1.2); CREATININE, SERUM 0.55 mg/dL (0.57-1.11); TOTAL PROTEIN 3.5 g/dL (6.5-8.1)
[2024-09-07 07:52] LABS: CALCIUM 6.5 mg/dL (8.4-10.2)
[2024-09-07] MEDS ORDERED: VECURONIUM BROMIDE FOR INJ 20 MG VIAL ONE (12:16)
[2024-09-07] MEDS ORDERED: ETOMIDATE 2 MG/ML 10 ML INJ IV ONE (12:16)
[2024-09-07] MEDS ORDERED: MIDAZOLAM HCL 2 MG/2 ML VIAL ONE (12:16)
[2024-09-07] MEDS ORDERED: SUCCINYLCHOLINE CHLORIDE 20 MG/ML 10ML VIAL ONE (12:16)
[2024-09-07] MEDS ORDERED: WATER STERILE 10 ML VIAL ONE (12:16)
[2024-09-07] MEDS: MUPIROCIN 2% OINT 22 GM TUBE TOP SCH (12:30)
[2024-09-07 12:46] LABS: ABG HCO3 21 mmol/L (22-26); ABG PCO2 36 mmHg (35-45); ABG PH 7.38 (7.35-7.45); ABG PO2 102 mmHg (80-105); ABG TCO2 22
[2024-09-07] MEDS: VASOPRESSIN 60 UNIT in DEXTROSE 5% 50ML 50 ML IV SCH (23:35)
[2024-09-08] VITALS (60 sets, daily range): BP systolic 70–156; BP diastolic 31–141; PULSE 58–132; RESP 0–45; TEMP 98.9–103; O2SAT 85–100
[2024-09-08 08:06] LABS: BASOPHILS % 0.3 % (0.0-1.0); EOSINOPHILS % 0.1 % (0.0-6.0); HEMATOCRIT 30.9 % (34.2-44.1); HEMOGLOBIN 10.8 g/dL (12.0-16.0); LYMPHOCYTES % 8.2 % (18.0-39.1); MEAN CORPUSCULAR HEMOGLOBIN 28.9 pg (28-32); MEAN CORPUSCULAR VOLUME 82.6 fL (81-99); MONOCYTES # (AUTO) 0.4 (0.2-0.8); MONOCYTES % 3.6 % (4.4-11.3); NEUTROPHILS # (AUTO) 10.1 (2.1-6.9); NEUTROPHILS % 86.4 % (38.7-80.0); PLATELET COUNT 139 x10e3/uL (140-360); RED BLOOD COUNT 3.74 x10e6/uL (3.6-5.1); RED CELL DISTRIBUTION WIDTH 16.3 % (11.7-14.4); WHITE BLOOD COUNT 11.71 x10e3/uL (4.8-10.8)
[2024-09-08 08:47] LABS: ABG HCO3 25 mmol/L (22-26); ABG PCO2 37 mmHg (35-45); ABG PH 7.45 (7.35-7.45); ABG PO2 65 mmHg (80-105); ABG TCO2 26
[2024-09-08 08:47] LABS: ALBUMIN 1.8 g/dL (3.5-5.0); ALBUMIN/GLOBULIN RATIO 1.1 (0.8-2.0); BILIRUBIN,TOTAL 3.5 mg/dL (0.2-1.2); CREATININE, SERUM 0.73 mg/dL (0.57-1.11); TOTAL PROTEIN 3.5 g/dL (6.5-8.1)
[2024-09-08 08:55] LABS: CALCIUM 6.4 mg/dL (8.4-10.2)
[2024-09-08] MEDS ORDERED: PROPOFOL IV EMULSION 10MG/ML 100 ML ONE (09:28)
[2024-09-08] MEDS: PROPOFOL IV EMULSION 10MG/ML 100 ML IV PRN (11:52)
[2024-09-08] MEDS: SODIUM CHLORIDE 0.9% 1000ML 1,000 ML ONE (11:55)
[2024-09-08] MEDS: LACTATED RINGER'S 1,000 ML INJ ONE (11:57)
[2024-09-08] MEDS: FENTANYL 2000MCG/NS 250 250 ML IV PRN (11:59)
[2024-09-08] MEDS: LACTATED RINGER'S 1,000 ML ONE (12:00)
[2024-09-08] MEDS: NOREPINEPHRINE 8 MG/D5W 250 ML 250 ML ONE (12:01)
[2024-09-08] MEDS: NOREPINEPHRINE 8 MG/D5W 250 ML 250 ML IV SCH (12:07)
[2024-09-08] MEDS ORDERED: LORAZEPAM INJ 2 MG/ML VIAL IV PRN (15:30)
[2024-09-08] MEDS: LORAZEPAM INJ 2 MG/ML VIAL IV ONE (15:32)
[2024-09-08] MEDS: ALBUMIN 25% 25GM 100ML 0.25 GM/ML BTL IV ONE ×2 (15:32→18:51)
[2024-09-08 17:09] LABS: ABG HCO3 24 mmol/L (22-26); ABG PCO2 35 mmHg (35-45); ABG PH 7.44 (7.35-7.45); ABG PO2 155 mmHg (80-105); ABG TCO2 25
[2024-09-08] MEDS: FUROSEMIDE INJ 10 MG/ML 4 ML VIAL IV ONE (18:11)
[2024-09-08] MEDS: LACTATED RINGER'S 1,000 ML INJ SCH (18:12)
[2024-09-08] MEDS: LORAZEPAM INJ 2 MG/ML VIAL IV PRN (18:41)
[2024-09-08 19:05] LABS: ABG HCO3 21 mmol/L (22-26); ABG PCO2 31 mmHg (35-45); ABG PH 7.44 (7.35-7.45); ABG PO2 143 mmHg (80-105); ABG TCO2 22
[2024-09-08] MEDS ORDERED: MICAFUNGIN SODIUM 100 MG IV STA (19:07)
[2024-09-08 19:28] LABS: BASOPHILS % 0.2 % (0.0-1.0); HEMATOCRIT 25.7 % (34.2-44.1); HEMOGLOBIN 9.2 g/dL (12.0-16.0); LYMPHOCYTES # (AUTO) 0.6 (1.0-3.2); LYMPHOCYTES % 6.7 % (18.0-39.1); MEAN CORPUSCULAR HEMOGLOBIN 28.7 pg (28-32); MEAN CORPUSCULAR HGB CONC 35.8 g/dL (31-35); MEAN CORPUSCULAR VOLUME 80.1 fL (81-99); MONOCYTES # (AUTO) 0.3 (0.2-0.8); MONOCYTES % 3.6 % (4.4-11.3); NEUTROPHILS # (AUTO) 7.8 (2.1-6.9); NEUTROPHILS % 88.3 % (38.7-80.0); PLATELET COUNT 133 x10e3/uL (140-360); RED BLOOD COUNT 3.21 x10e6/uL (3.6-5.1); RED CELL DISTRIBUTION WIDTH 16.2 % (11.7-14.4); WHITE BLOOD COUNT 8.83 x10e3/uL (4.8-10.8)
[2024-09-08] MEDS: ACETAMINOPHEN 1000 MG/100 ML 100 ML IV ONE (19:40)
[2024-09-08] MEDS: ACETAMINOPHEN 1000 MG/100 ML IV STA ×2 (19:40)
[2024-09-08] MEDS: Vancomycin IV 1 GM in SODIUM CHLORIDE 0.9% 250ML 250 ML IV ONE (19:45)
[2024-09-08] MEDS: MEROPENEM 1 GM in SODIUM CHLORIDE 0.9% 100 ML IV SCH (19:45)
[2024-09-08] MEDS: Vancomycin IV 1 GM VIAL ONE (19:48)
[2024-09-08] MEDS: SODIUM CHLORIDE 0.9% 250ML 250 ML ONE (19:49)
[2024-09-08 19:51] LABS: ALBUMIN 3.5 g/dL (3.5-5.0); ALBUMIN/GLOBULIN RATIO 3.2 (0.8-2.0); ANION GAP 21.4 mmol/L (8-16); CALCIUM 7.1 mg/dL (8.4-10.2); CREATININE, SERUM 1.29 mg/dL (0.57-1.11); POTASSIUM 4.4 mmol/L (3.5-5.1); TOTAL PROTEIN 4.6 g/dL (6.5-8.1)
[2024-09-08] MEDS: MICAFUNGIN SODIUM 100 MG in SODIUM CHLORIDE 0.9% 100 ML IV STA (19:55)
[2024-09-08] MEDS: IBUPROFEN 100 MG/5 ML SUSP NG PRN (21:17)
[2024-09-09] VITALS (77 sets, daily range): BP systolic 73–134; BP diastolic 40–104; PULSE 82–125; RESP 13–37; TEMP 97.7–99.1; O2SAT 83–99
[2024-09-09] MEDS: ALBUMIN 25% 25GM 100ML 0.25 GM/ML BTL IV ONE ×2 (01:37→15:31)
[2024-09-09 07:31] LABS: ABG PCO2 35 mmHg (35-45); ABG PH 7.38 (7.35-7.45)
[2024-09-09 07:34] LABS: ABG PO2 48 mmHg (80-105)
[2024-09-09 07:35] LABS: ABG HCO3 21 mmol/L (22-26); ABG TCO2 22
[2024-09-09] MEDS ORDERED: FUROSEMIDE INJ 10 MG/ML 4 ML VIAL ONE (08:36)
[2024-09-09] MEDS: FUROSEMIDE INJ 10 MG/ML 4 ML VIAL IV ONE (09:19)
[2024-09-09] MEDS: VECURONIUM BROMIDE FOR INJ 20 MG VIAL IV STA (09:19)
[2024-09-09] MEDS: LIDOCAINE HCL 2% LOCAL INJ 5 ML SDV VIAL INJ ONE (09:20)
[2024-09-09 09:28] LABS: EOSINOPHILS # (AUTO) 0.1 (0.0-0.4); EOSINOPHILS % 1.8 % (0.0-6.0); LYMPHOCYTES # (AUTO) 0.5 (1.0-3.2); MEAN CORPUSCULAR HEMOGLOBIN 28.4 pg (28-32); MEAN CORPUSCULAR HGB CONC 34.8 g/dL (31-35); MEAN CORPUSCULAR VOLUME 81.7 fL (81-99); MONOCYTES # (AUTO) 0.1 (0.2-0.8); NEUTROPHILS # (AUTO) 4.4 (2.1-6.9); PLATELET COUNT 101 x10e3/uL (140-360); RED BLOOD COUNT 2.78 x10e6/uL (3.6-5.1); RED CELL DISTRIBUTION WIDTH 16.4 % (11.7-14.4); WHITE BLOOD COUNT 5.11 x10e3/uL (4.8-10.8)
[2024-09-09 09:31] LABS: HEMATOCRIT 22.7 % (34.2-44.1); HEMOGLOBIN 7.9 g/dL (12.0-16.0)
[2024-09-09 10:03] LABS: ALBUMIN 3.1 g/dL (3.5-5.0); ALBUMIN/GLOBULIN RATIO 6.2 (0.8-2.0); BILIRUBIN,TOTAL 4.5 mg/dL (0.2-1.2); CREATININE, SERUM 1.13 mg/dL (0.57-1.11); TOTAL PROTEIN 3.6 g/dL (6.5-8.1)
[2024-09-09 10:06] LABS: CALCIUM 6.8 mg/dL (8.4-10.2)
[2024-09-09] MEDS: FUROSEMIDE INJ 100 MG in SODIUM CHLORIDE 0.9% 90 ML IV SCH (10:50)
[2024-09-09] MEDS: POTASSIUM CHLORIDE 20MEQ/100ML 200 ML IV ONE (10:50)
[2024-09-09] MEDS: LORAZEPAM INJ 2 MG/ML VIAL IV ONE ×2 (10:51→13:41)
[2024-09-09] MEDS: CALCIUM GLUC 1 G/50 ML NACL 50 ML IV ONE (10:51)
[2024-09-09 11:35] LABS: BAND NEUTROPHILS % (MANUAL) 8 %; LYMPHOCYTES % (MANUAL) 14 % (19-48); MONOCYTES % (MANUAL) 1 % (3.4-9.0); NEUTROPHILS % (MANUAL) 77 % (40-74); PLATELET ESTIMATE SLIGHTLY DECREASED; PLATELET MORPHOLOGY COMMENT NORMAL
[2024-09-09] MEDS: NOREPINEPHRINE 8 MG/D5W 250 ML 250 ML IV SCH (12:16)
[2024-09-09] MEDS: VECURONIUM BROMIDE FOR INJ 20 MG VIAL IV ONE (13:41)
[2024-09-09] MEDS: CALCIUM CARBONATE 500 MG CHEWABLE TABS PO SCH (14:09)
[2024-09-09 15:36] LABS: ABG HCO3 19 mmol/L (22-26); ABG PCO2 27 mmHg (35-45); ABG PH 7.45 (7.35-7.45); ABG PO2 159 mmHg (80-105); ABG TCO2 19
[2024-09-09 15:36] LABS: ABG HCO3 21 mmol/L (22-26); ABG PCO2 36 mmHg (35-45); ABG PH 7.38 (7.35-7.45); ABG PO2 102 mmHg (80-105); ABG TCO2 22
[2024-09-09 15:36] LABS: ABG HCO3 23 mmol/L (22-26); ABG PCO2 43 mmHg (35-45); ABG PH 7.34 (7.35-7.45); ABG PO2 33 mmHg (80-105); ABG TCO2 24
[2024-09-09 15:36] LABS: ABG HCO3 21 mmol/L (22-26); ABG PCO2 35 mmHg (35-45); ABG PH 7.38 (7.35-7.45); ABG PO2 48 mmHg (80-105); ABG TCO2 22
[2024-09-09 16:27] LABS: ANION GAP 18.6 mmol/L (8-16); CREATININE, SERUM 1.11 mg/dL (0.57-1.11); POTASSIUM 3.6 mmol/L (3.5-5.1)
[2024-09-09 16:30] LABS: CALCIUM 6.9 mg/dL (8.4-10.2)
[2024-09-09 16:48] LABS: ABG HCO3 19 mmol/L (22-26); ABG PCO2 36 mmHg (35-45); ABG PH 7.34 (7.35-7.45); ABG PO2 83 mmHg (80-105); ABG TCO2 20
[2024-09-09] MEDS: ROCURONIUM 1250MG/NS 250 250 ML IV PRN (22:03)
[2024-09-10] VITALS (72 sets, daily range): BP systolic 76–163; BP diastolic 16–130; PULSE 96–151; RESP 0–32; TEMP 97.7–98.8; O2SAT 87–100
[2024-09-10] MEDS ORDERED: ALBUMIN 25% 25GM 100ML 0.25 GM/ML BTL IV ONE (01:30)
[2024-09-10 07:29] LABS: ANION GAP 18.7 mmol/L (8-16); CREATININE, SERUM 1.05 mg/dL (0.57-1.11); MAGNESIUM 1.4 MG/DL (1.3-2.1)
[2024-09-10 07:31] LABS: BILIRUBIN,DIRECT 4.2 mg/dL (0.0-0.5); BILIRUBIN,INDIRECT 1.2 mg/dL (0.3-1.2); BILIRUBIN,TOTAL 5.4 mg/dL (0.2-1.2); CALCIUM 6.6 mg/dL (8.4-10.2)
[2024-09-10 07:32] LABS: POTASSIUM 2.7 mmol/L (3.5-5.1)
[2024-09-10] MEDS: ALBUTEROL/IPRATROPIUM 3 ML NEB NEB PRN (07:42)
[2024-09-10 07:46] LABS: ABG PCO2 41 mmHg (35-45); ABG PH 7.26 (7.35-7.45)
[2024-09-10 07:47] LABS: ABG HCO3 19 mmol/L (22-26); ABG PO2 42 mmHg (80-105); ABG TCO2 20
[2024-09-10 08:15] LABS: BASOPHILS % 0.2 % (0.0-1.0); EOSINOPHILS # (AUTO) 0.2 (0.0-0.4); EOSINOPHILS % 2.7 % (0.0-6.0); HEMATOCRIT 25.3 % (34.2-44.1); HEMOGLOBIN 8.7 g/dL (12.0-16.0); LYMPHOCYTES # (AUTO) 0.3 (1.0-3.2); LYMPHOCYTES % 3.3 % (18.0-39.1); MEAN CORPUSCULAR HEMOGLOBIN 28.4 pg (28-32); MEAN CORPUSCULAR HGB CONC 34.4 g/dL (31-35); MEAN CORPUSCULAR VOLUME 82.7 fL (81-99); MONOCYTES # (AUTO) 0.2 (0.2-0.8); MONOCYTES % 2.2 % (4.4-11.3); NEUTROPHILS # (AUTO) 7.9 (2.1-6.9); NEUTROPHILS % 87.9 % (38.7-80.0); RED BLOOD COUNT 3.06 x10e6/uL (3.6-5.1); RED CELL DISTRIBUTION WIDTH 17.2 % (11.7-14.4)
[2024-09-10 08:16] LABS: WHITE BLOOD COUNT 8.99 x10e3/uL (4.8-10.8)
[2024-09-10 08:18] LABS: PLATELET COUNT 70 x10e3/uL (140-360)
[2024-09-10] MEDS: POTASSIUM CHLORIDE 20MEQ/100ML 200 ML IV ONE ×2 (08:21→12:28)
[2024-09-10] MEDS: MAGNESIUM SULFATE 2GM/50ML 50 ML IV ONE ×2 (08:21→09:32)
[2024-09-10] MEDS: FUROSEMIDE INJ 100 MG in SODIUM CHLORIDE 0.9% 90 ML IV SCH (08:22)
[2024-09-10] MEDS: LORAZEPAM INJ 2 MG/ML VIAL IV ONE ×2 (08:22→18:51)
[2024-09-10] MEDS ORDERED: FUROSEMIDE INJ 100 MG in SODIUM CHLORIDE 0.9% 90 ML IV SCH (08:30)
[2024-09-10] MEDS ORDERED: MAGNESIUM SULFATE 2GM/50ML 50 ML IV ONE (09:00)
[2024-09-10 09:17] LABS: ABG HCO3 21 mmol/L (22-26); ABG PCO2 31 mmHg (35-45); ABG PH 7.44 (7.35-7.45); ABG PO2 143 mmHg (80-105); ABG TCO2 22
[2024-09-10 09:18] LABS: ABG HCO3 21 mmol/L (22-26); ABG PCO2 31 mmHg (35-45); ABG PH 7.44 (7.35-7.45); ABG PO2 30 mmHg (80-105); ABG TCO2 22
[2024-09-10 09:18] LABS: ABG HCO3 24 mmol/L (22-26); ABG PCO2 37 mmHg (35-45); ABG PH 7.43 (7.35-7.45); ABG PO2 112 mmHg (80-105); ABG TCO2 26
[2024-09-10 09:19] LABS: ABG HCO3 25 mmol/L (22-26); ABG PCO2 37 mmHg (35-45); ABG PH 7.45 (7.35-7.45); ABG PO2 65 mmHg (80-105); ABG TCO2 26
[2024-09-10 09:19] LABS: ABG HCO3 24 mmol/L (22-26); ABG PCO2 35 mmHg (35-45); ABG PH 7.44 (7.35-7.45); ABG PO2 155 mmHg (80-105); ABG TCO2 25
[2024-09-10] MEDS: CALCIUM CHLORIDE 13.6 MEQ in SODIUM CHLORIDE 0.9% 100 ML IV ONE (09:29)
[2024-09-10] MEDS: SODIUM BICARBONATE 650 MG TAB PO SCH (09:31)
[2024-09-10] MEDS: VANCOMYCIN 250MG/5ML ORAL SOLN PO SCH (11:57)
[2024-09-10 12:14] LABS: BAND NEUTROPHILS % (MANUAL) 6 %; EOSINOPHILS % (MANUAL) 3 % (0-7); LYMPHOCYTES % (MANUAL) 6 % (19-48); MONOCYTES % (MANUAL) 4 % (3.4-9.0); NEUTROPHILS % (MANUAL) 81 % (40-74); NUCLEATED RED BLOOD CELLS 9
[2024-09-10 12:15] LABS: ANISOCYTOSIS SLIGHT; OVALOCYTES FEW; PLATELET ESTIMATE MODERATELY DECREASED; PLATELET MORPHOLOGY COMMENT FEW LARGE; POLYCHROMASIA FEW; RBC MORPHOLOGY COMMENT ABNORMAL
[2024-09-10] MEDS: MICAFUNGIN SODIUM 100 MG in SODIUM CHLORIDE 0.9% 100 ML IV SCH (12:29)
[2024-09-10 13:35] LABS: ABG HCO3 15 mmol/L (22-26); ABG PCO2 38 mmHg (35-45); ABG PO2 49 mmHg (80-105); ABG TCO2 16
[2024-09-10] MEDS: SODIUM CHLORIDE 0.9% 500ML 500 ML IV ONE (13:37)
[2024-09-10] MEDS: ALBUMIN 5% 0.05 GM/ML BTL IV ONE (13:54)
[2024-09-10] MEDS: SODIUM BICARBONATE 8.4% INJ 50 ML SYR IV ONE (13:55)
[2024-09-10] MEDS: SODIUM BICARBONATE 8.4% SYRING 150 ML in DEXTROSE 5% 1,000 ML IV ONE (14:12)
[2024-09-10 15:15] LABS: ABG HCO3 18 mmol/L (22-26); ABG PCO2 42 mmHg (35-45); ABG PH 7.24 (7.35-7.45); ABG PO2 90 mmHg (80-105); ABG TCO2 20
[2024-09-10 17:59] LABS: CREATININE, SERUM 1.17 mg/dL (0.57-1.11)
[2024-09-10 18:13] LABS: CALCIUM 6.7 mg/dL (8.4-10.2)
[2024-09-10] MEDS: VASOPRESSIN 60 UNIT in DEXTROSE 5% 50ML 57 ML IV SCH (18:18)
[2024-09-10] MEDS ORDERED: CALCIUM GLUCONATE 10% INJ 9.3 MEQ in SODIUM CHLORIDE 0.9% 100 ML IV ONE (18:45)
[2024-09-10] MEDS: SODIUM BICARBONATE 8.4% INJ 50 ML SYR IV STA (18:51)
[2024-09-10 19:25] LABS: IRON 55 ug/dL (50-170); TRANSFERRIN < 70 mg/dL (180-382)
[2024-09-10] MEDS: CALCIUM GLUC 1 G/50 ML NACL 50 ML IV SCH (19:51)
[2024-09-10 20:05] LABS: FOLATE 6.2 ng/mL (7.0-15.4)
[2024-09-10 20:33] LABS: FERRITIN 21235.28 ng/mL (4.63-204.00)
[2024-09-10] MEDS: DEXTROSE 50% SYRINGE 50 ML IV PRN (21:33)
[2024-09-11] VITALS (67 sets, daily range): BP systolic 30–144; BP diastolic 10–71; PULSE 32–146; RESP 4–36; TEMP 93–97.8; O2SAT 17–38
[2024-09-11] MEDS: SODIUM BICARBONATE 8.4% INJ 50 ML SYR IV STA ×4 (02:48→11:46)
[2024-09-11] MEDS ORDERED: EPINEPHRINE HCL 1:1000 1ML 1 MG/ML AMP ONE (03:28)
[2024-09-11] MEDS: EPINEPHRINE HCL 1:1000 1ML 4 MG in DEXTROSE 5% 250ML 250 ML IV PRN (03:36)
[2024-09-11] MEDS: SODIUM BICARBONATE 8.4% INJ 50 ML SYR IV PRN (03:52)
[2024-09-11] MEDS: DEXTROSE 5% 250ML 250 ML IV ONE (03:54)
[2024-09-11 06:54] LABS: BASOPHILS % 0.2 % (0.0-1.0); EOSINOPHILS % 0.4 % (0.0-6.0); HEMATOCRIT 27.1 % (34.2-44.1); HEMOGLOBIN 8.3 g/dL (12.0-16.0); LYMPHOCYTES # (AUTO) 0.5 (1.0-3.2); LYMPHOCYTES % 4.8 % (18.0-39.1); MEAN CORPUSCULAR HEMOGLOBIN 28.6 pg (28-32); MEAN CORPUSCULAR HGB CONC 30.6 g/dL (31-35); MEAN CORPUSCULAR VOLUME 93.4 fL (81-99); MONOCYTES # (AUTO) 0.7 (0.2-0.8); MONOCYTES % 6.2 % (4.4-11.3); NEUTROPHILS # (AUTO) 9.1 (2.1-6.9); NEUTROPHILS % 81.9 % (38.7-80.0); PLATELET COUNT 58 x10e3/uL (140-360); RED CELL DISTRIBUTION WIDTH 18.7 % (11.7-14.4); WHITE BLOOD COUNT 11.12 x10e3/uL (4.8-10.8)
[2024-09-11] MEDS ORDERED: SODIUM BICARBONATE 8.4% SYRING 150 ML ONE (06:58)
[2024-09-11 07:04] LABS: ABG HCO3 9 mmol/L (22-26); ABG PCO2 50 mmHg (35-45); ABG PH 6.85 (7.35-7.45); ABG PO2 63 mmHg (80-105)
[2024-09-11 07:05] LABS: ABG TCO2 10
[2024-09-11] MEDS: SODIUM BICARBONATE 8.4% INJ 50 ML SYR IV ONE ×3 (07:19→16:01)
[2024-09-11 07:24] LABS: ALBUMIN 2.2 g/dL (3.5-5.0); ALBUMIN/GLOBULIN RATIO 2.8 (0.8-2.0); ANION GAP 39.6 mmol/L (8-16); BILIRUBIN,TOTAL 7.9 mg/dL (0.2-1.2); CREATININE, SERUM 1.88 mg/dL (0.57-1.11)
[2024-09-11 07:30] LABS: POTASSIUM 5.6 mmol/L (3.5-5.1)
[2024-09-11] MEDS: SODIUM BICARBONATE 8.4% SYRING 150 ML ONE (07:38)
[2024-09-11 08:46] LABS: ABG PCO2 53 mmHg (35-45)
[2024-09-11 08:47] LABS: ABG HCO3 11 mmol/L (22-26); ABG PO2 50 mmHg (80-105); ABG TCO2 12
[2024-09-11] MEDS: SODIUM BICARBONATE 8.4% SYRING 150 ML in DEXTROSE 5% 1,000 ML IV ONE (09:15)
[2024-09-11] MEDS: ENOXAPARIN SOD INJ 60 MG/0.6 ML SYR SC SCH (09:15)
[2024-09-11 11:44] LABS: TOTAL PROTEIN, URINE 55.7 mg/dL (1-14)
[2024-09-11 11:46] LABS: TOTAL PROTEIN 24HR, URINE 139.2 mg/24hr (50-100)
[2024-09-11 13:09] LABS: BAND NEUTROPHILS % (MANUAL) 13 %; EOSINOPHILS % (MANUAL) 1 % (0-7); LYMPHOCYTES % (MANUAL) 13 % (19-48); MONOCYTES % (MANUAL) 3 % (3.4-9.0); MYELOCYTES % (MANUAL) 4 % (0-0); NEUTROPHILS % (MANUAL) 66 % (40-74); PLATELET ESTIMATE MODERATELY DECREASED; PLATELET MORPHOLOGY COMMENT NORMAL; RBC MORPHOLOGY COMMENT NORMAL
[2024-09-17 07:31] LABS: TOXOPLASMA IGG ANTIBODY 3.1
[2024-09-17 07:32] LABS: TOXOPLASMA IGM ANTIBODY <3.0
[2024-09-17 07:50] LABS: ABG HCO3 15 mmol/L (22-26); ABG PCO2 38 mmHg (35-45); ABG PO2 49 mmHg (80-105); ABG TCO2 16
[2024-09-17 07:50] LABS: ABG HCO3 18 mmol/L (22-26); ABG PCO2 42 mmHg (35-45); ABG PH 7.24 (7.35-7.45); ABG PO2 90 mmHg (80-105); ABG TCO2 20
[2024-09-17 07:50] LABS: ABG HCO3 9 mmol/L (22-26); ABG PCO2 50 mmHg (35-45); ABG PH 6.86 (7.35-7.45); ABG PO2 63 mmHg (80-105); ABG TCO2 10
[2024-09-17 07:50] LABS: ABG HCO3 11 mmol/L (22-26); ABG PCO2 53 mmHg (35-45); ABG PO2 50 mmHg (80-105); ABG TCO2 12
[2024-09-17 07:50] LABS: ABG HCO3 19 mmol/L (22-26); ABG PCO2 41 mmHg (35-45); ABG PH 7.26 (7.35-7.45); ABG PO2 42 mmHg (80-105); ABG TCO2 20
[2024-09-17 07:53] LABS: ABG HCO3 19 mmol/L (22-26); ABG PCO2 36 mmHg (35-45); ABG PH 7.34 (7.35-7.45); ABG PO2 83 mmHg (80-105); ABG TCO2 20
== END 2024-09-11 17:05 | disposition expired | DRG 871 ==
LOC: ER 18:20 → ERHOLD 08-25 00:06 → MED/SURG2 08-25 03:03 → OBSVTOIN 08-25 12:54 → MED/SURG3 08-27 10:53 → ICU 09-03 18:02
PROVIDERS: ADMIT Internal Medicine; ATTEND Internal Medicine
PROC: 5A09457 Assistance with Respiratory Ventilation, 24-96 Consecutive Hours, Continuous Positive Airway Pressure (ICD-10-PCS; 2024-09-04)
PROC: 4A133R1 Monitoring of Arterial Saturation, Peripheral, Percutaneous Approach (ICD-10-PCS; 2024-09-04)
PROC: 02HV33Z Insertion of Infusion Device into Superior Vena Cava, Percutaneous Approach (ICD-10-PCS; 2024-09-04)
PROC: B548ZZA Ultrasonography of Superior Vena Cava, Guidance (ICD-10-PCS; 2024-09-04)
PROC: 5A0935A Assistance with Respiratory Ventilation, Less than 24 Consecutive Hours, High Flow/Velocity Cannula (ICD-10-PCS; 2024-09-05)
PROC: 5A09457 Assistance with Respiratory Ventilation, 24-96 Consecutive Hours, Continuous Positive Airway Pressure (ICD-10-PCS; 2024-09-05)
PROC: 4A133R1 Monitoring of Arterial Saturation, Peripheral, Percutaneous Approach (ICD-10-PCS; 2024-09-06)
PROC: 4A133R1 Monitoring of Arterial Saturation, Peripheral, Percutaneous Approach (ICD-10-PCS; 2024-09-07)
PROC: 0BH17EZ Insertion of Endotracheal Airway into Trachea, Via Natural or Artificial Opening (ICD-10-PCS; principal; 2024-09-08)
PROC: 5A1945Z Respiratory Ventilation, 24-96 Consecutive Hours (ICD-10-PCS; 2024-09-08)
PROC: 4A133R1 Monitoring of Arterial Saturation, Peripheral, Percutaneous Approach (ICD-10-PCS; 2024-09-08)
PROC: 3E033XZ Introduction of Vasopressor into Peripheral Vein, Percutaneous Approach (ICD-10-PCS; 2024-09-08)
PROC: 4A133R1 Monitoring of Arterial Saturation, Peripheral, Percutaneous Approach (ICD-10-PCS; 2024-09-09)
PROC: 4A043R1 Measurement of Venous Saturation, Peripheral, Percutaneous Approach (ICD-10-PCS; 2024-09-09)
PROC: 04HY32Z Insertion of Monitoring Device into Lower Artery, Percutaneous Approach (ICD-10-PCS; 2024-09-09)
PROC: 4A133B1 Monitoring of Arterial Pressure, Peripheral, Percutaneous Approach (ICD-10-PCS; 2024-09-09)
PROC: 4A133J1 Monitoring of Arterial Pulse, Peripheral, Percutaneous Approach (ICD-10-PCS; 2024-09-09)
PROC: 4A133R1 Monitoring of Arterial Saturation, Peripheral, Percutaneous Approach (ICD-10-PCS; 2024-09-10)
PROC: 4A133R1 Monitoring of Arterial Saturation, Peripheral, Percutaneous Approach (ICD-10-PCS; 2024-09-11)
DX: A41.89 Other specified sepsis (principal); I26.99 Other pulmonary embolism without acute cor pulmonale; J18.9 Pneumonia, unspecified organism; J96.01 Acute respiratory failure with hypoxia; R65.21 Severe sepsis with septic shock; N17.9 Acute kidney failure, unspecified; A04.72 Enterocolitis due to Clostridium difficile, not specified as recurrent; N39.0 Urinary tract infection, site not specified; E87.20 Acidosis, unspecified; E87.1 Hypo-osmolality and hyponatremia; K52.1 Toxic gastroenteritis and colitis; J90 Pleural effusion, not elsewhere classified; E87.6 Hypokalemia; R74.8 Abnormal levels of other serum enzymes; E78.5 Hyperlipidemia, unspecified; M06.9 Rheumatoid arthritis, unspecified; E11.9 Type 2 diabetes mellitus without complications; Z79.84 Long term (current) use of oral hypoglycemic drugs; M19.91 Primary osteoarthritis, unspecified site; D64.9 Anemia, unspecified; D69.6 Thrombocytopenia, unspecified; E87.70 Fluid overload, unspecified; R74.01 Elevation of levels of liver transaminase levels; K80.20 Calculus of gallbladder without cholecystitis without obstruction; Z96.652 Presence of left artificial knee joint; Z79.82 Long term (current) use of aspirin; R76.11 Nonspecific reaction to tuberculin skin test without active tuberculosis; Z66 Do not resuscitate; E83.42 Hypomagnesemia; E83.51 Hypocalcemia; I46.9 Cardiac arrest, cause unspecified; Z11.52 Encounter for screening for COVID-19; T36.8X5A Adverse effect of other systemic antibiotics, initial encounter; F41.9 Anxiety disorder, unspecified; Y92.230 Patient room in hospital as the place of occurrence of the external cause; Y95 Nosocomial condition; R60.1 Generalized edema; E11.22 Type 2 diabetes mellitus with diabetic chronic kidney disease; N18.2 Chronic kidney disease, stage 2 (mild); I12.9 Hypertensive chronic kidney disease with stage 1 through stage 4 chronic kidney disease, or unspecified chronic kidney disease; K76.0 Fatty (change of) liver, not elsewhere classified; Z79.899 Other long term (current) drug therapy
CPT/HCPCS: 36415; 36569; 36600; 71045; 71260; 74018; 74177; 76705; 80048; 80053; 80076; 81001; 81050; 82140; 82248; 82550; 82607; 82728; 82746; 82805; 82948; 83540; 83605; 83630; 83690; 83735; 83880; 84100; 84132; 84145; 84155; 84156; 84466; 84484; 85025; 85045; 85610; 85730; 86039; 86140; 86160; 86431; 86635; 86738; 86777; 86778; 87040; 87070; 87086; 87102; 87116; 87205; 87206; 87324; 87385; 87449; 93005; 93306; 94002; 94003; 94640; 94660; 94799; 96372; 99252; 99284; J0171; J0330; J0612; J0692; J0696; J1650; J1885; J1940; J2003; J2060; J2185; J2248; J2250; J2270; J2405; J2543; J2919; J3475; J3480; J7030; J7040; J7050; J7070; J7512; J7799; P9047; Q9967; U0002